=== PATIENT | female | born 1935 | race Caucasian/White ===

== ENCOUNTER 2023-07-05 13:04 | Emergency (ER) | payer MEDICARE, SELFPAY ==
[2023-07-05 13:09] VITALS: BP 164/83
--- NOTE | 2023-07-05 14:31 | ED.GENMED ---
History of Present Illness
General
Chief Complaint: Fall
Source: patient
Time Seen by Provider: 07/05/23 14:00
Travel History
Have you had any contact with someone who has COVID-19?: No
Do you have any symptoms of coronavirus? Fever > 100 degrees, chills, cough, shortness of breath, sore throat, loss of taste or smell, muscle aches, or headache?: No
History of Present Illness
History of Present Illness:
88-year-old female presents emergency room for evaluation of injuries that occurred after a fall yesterday. Patient was walk around her neighborhood to get some exercise. She got home later than expected because she was talking to lots of
neighbors and so it was dark. She began to feel little dizzy and ended up tripping and falling she is on to her forehead/face. No loss of consciousness. Patient awoke to significant bruising and decided she should get checked out. She does not
take any oral anticoagulation. She does take a baby aspirin a day.
Past History
Past History
ED Past Medical History: CAD, Hypothyroidism, Other (TIA ) and Other (Diverticulitis)
ED Past Surgical History: Cardiac and Gynecological
Social History
Tobacco: Non-smoker
Alcohol: Occasional
Drug: None
Personal:
Living: with family
Employment: Retired
Family History
Family History: Other
Phy Exam
Physical Exam
Physical Exam:
General: Awake, Alert, Oriented X3. No acute distress.
Vitals: unremarkable
Head: Abrasion noted just to the right of center on her forehead. Ecchymosis noted forehead, bilateral periorbital and about the nose.
Nose: No septal hematoma
Eyes: Pupils equal, EOMI
Throat: Airway intact, no exudates
Neck: Trachea midline
Lungs: Clear and equal b/l
Heart: Regular rate, no murmurs
Abd: Soft, Nontender, No pulsatile mass
Neuro: Cranial nerves intact, muscle strength equal bilaterally
Skin: Warm, dry, no rash
Extremities: pulses equal b/l, no edema
Course
Orders/Labs/Results
Orders:
Orders
07/05/23 13:14
CT Head W/o Iv Contrast Urgent
Comment:
Reason For Exam: fall
07/05/23 14:01
CT Facial Bones W/o Iv Contras Urgent
Comment:
Reason For Exam: fall, facial trauma
07/05/23 14:33
Acetaminophen [Tylenol] 650 mg PO NOW STA
Tetanus/Diphth/Acelpertussis [Adacel] 0.5 ml IM .ONCE ONE
Vital Signs
Initial and Last Documented VS:
Initial Vital Signs
Temp Pulse Resp BP Pulse Ox
98.7 F 63 18 164/83 96
07/05/23 13:09 07/05/23 13:09 07/05/23 13:09 07/05/23 13:09 07/05/23 13:09
Last Documented Vital Signs
Temp Pulse Resp BP Pulse Ox
98.7 F 62 16 144/91 96
07/05/23 13:09 07/05/23 14:44 07/05/23 14:44 07/05/23 14:44 07/05/23 13:09
MDM/Problems Addressed
Differential Diagnosis Includes:
Subdural, cranial hemorrhage, facial bone fracture, contusions
MDM/Problems Addressed:
CT shows no acute intracranial abnormality. The fracture of facial bones. Ecchymosis seems to be tracking with gravity more so than reflective of actual facial trauma. Patient stable for discharge home. Tetanus updated.
*Radiology
Radiology exam reviewed: radiology read reviewed
*Pulse Oximetry
Patient hypoxic: no
*Critical Care Note
Total Time (30-74mins, 75-104mins- exclusive of procedures): Not Applicable
ED Attending Note
-
Portions of this chart may have been created with voice recognition software.� Occasional wrong word or��sound alike� substitutions may have occurred due to the inherent limitations of voice recognition software.
Discharge Plan
Departure
Patient Disposition: Home (Routine Discharge)
Date of Disposition: 07/05/23
Time of Disposition: 14:47
Patient with high blood pressure during this ER visit?: Yes
Condition: Good
Discharge Problem:
Head injury, Contusion of face
Instructions: Head Injury in Adults (DC), Contusion (DC), BLOOD PRESSURE
Prescriptions:
No Action
levothyroxine [Synthroid] 25 MCG tablet
25 mcg PO DAILY
folic acid 1 MG tablet
1 mg PO DAILY
docosahexaenoic acid-epa 1 CAP capsule
1 cap PO DAILY
multivitamin with folic acid [Tab-A-Courtney] 1 TABLET tablet
1 tab PO DAILY
Vitamin C
1 tab PO DAILY
Vitamin D
1 tab PO DAILY
aspirin 81 MG tablet,delayed release (DR/EC)
81 mg PO DAILY
lorazepam [Ativan] 2 MG tablet
1 mg PO PRN (Reason: trouble sleeping)
ondansetron 4 MG tablet,disintegrating
4 mg PO TIDPRN PRN (Reason: nausea/vomiting) Qty: 5 0RF
Referrals:
Shay Cat MD [Family Provider] -
Interventions
Interventions:
*Risk Screen - Suicide Last Done: 07/05/23 13:09
*General Assessment Last Done: 07/05/23 13:09
*Neglect/Abuse Screening Last Done: 07/05/23 13:09
*ED COVID-19 Vaccine History Last Done: 07/05/23 13:50
*Nursing Disposition Last Done: 07/05/23 15:08
ED-Musculoskeletal Assessment Last Done: 07/05/23 13:50
ED- Neurological Assessment Last Done: 07/05/23 13:50
ED-Skin Assessment Last Done: 07/05/23 13:50
Discharge Date and Time
Discharge Date/Time: 07/05/23 15:08
[2023-07-05] MEDS: TYLENOL 650 MG PO (14:35)
[2023-07-05] MEDS: ADACEL 0.5 ML IM (14:36)
[2023-07-05 14:44] VITALS: BP 144/91
== END 2023-07-05 15:08 | disposition home or self-care (01) ==
LOC: EMR 13:04
PROVIDERS: EMERGENCY PHYSICIAN Emergency Medicine; FAMILY PHYSICIAN Internal Medicine Geriatric Medicine
DX: S00.81XA Abrasion of other part of head, initial encounter (principal); S00.83XA Contusion of other part of head, initial encounter; W01.0XXA Fall on same level from slipping, tripping and stumbling without subsequent striking against object, initial encounter; R42 Dizziness and giddiness; Z23 Encounter for immunization
CPT/HCPCS: 99284; 90471; 70450; 70486; 90715

== ENCOUNTER 2023-08-10 21:32 | Inpatient (IN) | payer MEDICARE, SELFPAY ==
[2023-08-10 19:13] VITALS: BP 119/50; BMI 25.1
[2023-08-10 19:23] VITALS: BP 119/50
[2023-08-10 19:39] LABS: % Basophils 0.3 % (0-2); % Immature Granulocytes 0.4 % (0-0.5); % Lymphocytes 2.8 % (20.5-51.1); % Monocytes 4.8 % (1.7-9.3); % Neutrophils 91.7 % (42.2-75.2); Absolute Basophils 0.1 10^3/uL (0-0.2); Absolute Immature Granulocytes 0.1 10^3/uL (0-0.05); Absolute Lymphocytes 0.5 10^3/uL (1.2-3.4); Absolute Monocytes 0.9 10^3/uL (0.1-0.6); Absolute Neutrophils 17.5 10^3/uL (1.4-6.5); Hematocrit 38.6 % (37.0-47.0); Hemoglobin 13.3 g/dL (12.0-16.0); Mean Corp Hgb Conc. 34.5 g/dL (33.0-37.0); Mean Corpuscular Volume 84.3 fL (81.0-99.0); Mean Platelet Volume 9.5 fL (7.4-10.4); Nucleated Red Blood Cells % 0 %; Platelet Count 279 10^3/uL (130-400); Red Blood Cell Count 4.58 10^6/uL (4.20-5.40); Red Cell Dist. Width 13.5 % (11.5-14.5); White Blood Cell Count 19.1 10^3/uL (4.8-10.8)
--- NOTE | 2023-08-10 19:49 | ED.GENMED ---
History of Present Illness
General
Chief Complaint: Abdominal Symptoms
Source: patient
Exam Limitations: none
Time Seen by Provider: 08/10/23 19:36
Travel History
Have you had any contact with someone who has COVID-19?: No
Do you have any symptoms of coronavirus? Fever > 100 degrees, chills, cough, shortness of breath, sore throat, loss of taste or smell, muscle aches, or headache?: No
History of Present Illness
History of Present Illness:
88-year-old female presents via EMS from home where she lives by herself. She has had nausea vomiting diarrhea starting 2 days ago. Vomiting stopped today but persists with diarrhea. She notes weakness. She notes diffuse abdominal pain. She
thinks she may have eaten some bad shrimp 2 days ago. No known sick contacts. No chest pain. No other complaints at this time
Past History
Past History
ED Past Medical History: CAD, Hypothyroidism, Other (TIA ) and Other (Diverticulitis)
ED Past Surgical History: Cardiac and Gynecological
Social History
Tobacco: Non-smoker
Alcohol: Occasional
Drug: None
Personal:
Living: with family
Employment: Retired
Family History
Family History: Other
Phy Exam
Physical Exam
Physical Exam:
General: Well-appearing female no acute respiratory distress
HEENT normocephalic mucosa dry
Heart: Regular rate and rhythm no murmurs
Lungs: Clear no wheeze
Abdomen: Soft but tender diffusely to light touch. No guarding or rebound normal bowel sounds extremities: No cyanosis
Course
Orders/Labs/Results
Orders:
Orders
08/10/23 19:27
Complete Blood Count/With Diff Urgent
Comprehensive Metabolic Panel Urgent
08/10/23 19:48
CT Abd/pelvis W Iv Cont Urgent
Comment:
Reason For Exam: abdominal pain, diarrhea
Norovirus by PCR Urgent
ALLAN Source: Feces/Stool
Specimen Description:
STOOL [C difficile Antigen & Toxins] Urgent
ALLAN Source: Feces/Stool
Specimen Description:
Stool Culture Urgent
ALLAN Source: Feces/Stool
Specimen Description:
Acetaminophen [Tylenol] 650 mg PO NOW STA
08/10/23 21:00
Lactic Acid Q4H
Comment: CANCEL 2nd LACTIC ACID IF 1st LACTIC ACID IS LESS THAN 2
Blood Culture Q30M
ALLAN Source: Blood/Venous
Specimen Description:
08/10/23 21:30
Blood Culture Q30M
ALLAN Source: Blood/Venous
Specimen Description:
08/11/23 01:00
Lactic Acid Q4H
Comment: CANCEL 2nd LACTIC ACID IF 1st LACTIC ACID IS LESS THAN 2
Abnormal Lab Results
08/10/23
19:27
WBC 19.1 H 10^3/uL
(4.8-10.8)
Abs Immat Gran (auto) 0.1 H 10^3/uL
(0-0.05)
Absolute Neuts (auto) 17.5 H 10^3/uL
(1.4-6.5)
Absolute Lymphs (auto) 0.5 L 10^3/uL
(1.2-3.4)
Absolute Monos (auto) 0.9 H 10^3/uL
(0.1-0.6)
Neutrophils % 91.7 H %
(42.2-75.2)
Lymphocytes % 2.8 L %
(20.5-51.1)
Sodium 133 L mmol/L
(135-145)
Glucose 154 H mg/dl
(70-99)
Total Bilirubin 2.2 H mg/dl
(0.2-1.3)
Total Protein 5.8 L g/dl
(6.3-8.2)
Albumin 3.3 L g/dl
(3.5-5.0)
08/10/23 19:27
08/10/23 19:27
Vital Signs
Initial and Last Documented VS:
Initial Vital Signs
Temp Pulse Resp BP Pulse Ox
101.0 F H 73 30 119/50 94
08/10/23 19:13 08/10/23 19:13 08/10/23 19:13 08/10/23 19:13 08/10/23 19:13
Last Documented Vital Signs
Temp Pulse Resp BP Pulse Ox
101.0 F H 78 28 118/63 95
08/10/23 19:13 08/10/23 20:15 08/10/23 20:15 08/10/23 20:00 08/10/23 19:45
MDM/Problems Addressed
Differential Diagnosis Includes:
Nausea vomiting and diarrhea x 2 days with fever today. Question possible viral illness, vs obstruction. Will check for electrolyte abnormality and stool cultures if she provides sample. Will hydrate give Tylenol for symptoms and given the
tenderness on exam CT of the abdomen pending.
*Critical Care Note
Total Time (30-74mins, 75-104mins- exclusive of procedures): Not Applicable
Update Note
Update Note:
White blood cell count 19,000. Patient is not vomiting here. CT demonstrates small bowel obstruction with transition point in the lower abdomen with focal small perforation. Blood cultures ordered patient received a liter of fluids here. Zosyn
ordered. Contacted medicine and surgery and will admit to hospital
ED Attending Note
-
Portions of this chart may have been created with voice recognition software.� Occasional wrong word or��sound alike� substitutions may have occurred due to the inherent limitations of voice recognition software.
Discharge Plan
Departure
Patient Disposition: Admit
Date of Disposition: 08/10/23
Time of Disposition: 20:56
Admit to: IMU
Presentation/result/management discussed w/ accepting MD/DO: Hospitalist
Discharge Problem:
SBO (small bowel obstruction)
Prescriptions:
No Action
levothyroxine [Synthroid] 25 MCG tablet
25 mcg PO DAILY
folic acid 1 MG tablet
1 mg PO DAILY
docosahexaenoic acid-epa 1 CAP capsule
1 cap PO DAILY
multivitamin with folic acid [Tab-A-Courtney] 1 TABLET tablet
1 tab PO DAILY
Vitamin C
1 tab PO DAILY
Vitamin D
1 tab PO DAILY
aspirin 81 MG tablet,delayed release (DR/EC)
81 mg PO DAILY
lorazepam [Ativan] 2 MG tablet
1 mg PO PRN (Reason: trouble sleeping)
ondansetron 4 MG tablet,disintegrating
4 mg PO TIDPRN PRN (Reason: nausea/vomiting) Qty: 5 0RF
Referrals:
Shay Cat MD [Family Provider] -
Interventions
Interventions:
*Risk Screen - Suicide Last Done: 08/10/23 19:13
*General Assessment Last Done: 08/10/23 19:13
*Neglect/Abuse Screening Last Done: 08/10/23 19:13
ED- Fall Risk Assessment Last Done: 08/10/23 19:28
*ED COVID-19 Vaccine History Last Done: 08/10/23 19:13
SY-Amilnm-Xfpnhdpqse Assessment Last Done: 08/10/23 19:28
[2023-08-10 19:51] LABS: ALT (SGPT) 23 U/L (0-35); AST (SGOT) 27 U/L (14-36); Albumin 3.3 g/dl (3.5-5.0); Alkaline Phosphatase 79 U/L (38-126); Blood Urea Nitrogen 17 mg/dl (7-17); Calcium 9.2 mg/dl (8.4-10.2); Carbon Dioxide 23 mmol/L (22-30); Chloride 102 mmol/L (98-107); Estimated Creatinine Clearance 58 ml/min; Glucose 154 mg/dl (70-99); Potassium 3.9 mmol/L (3.5-5.1); Sodium 133 mmol/L (135-145); Total Bilirubin 2.2 mg/dl (0.2-1.3); Total Protein 5.8 g/dl (6.3-8.2); eGFR > 60.00
[2023-08-10] MEDS: TYLENOL 650 MG PO (19:54)
[2023-08-10 20:00] VITALS: BP 118/63
[2023-08-10 21:00] VITALS: BP 116/51
[2023-08-10 21:17] LABS: Lactic Acid 2.9 mmol/L (0.7-2.0)
--- NOTE | 2023-08-10 21:22 | HPS.HSE ---
Addendum entered and electronically signed by Paddy Patel MD 08/10/23 21:30:
I have personally seen patient and agree with assessment and plan below.
In Brief: 88yo F with 3 days of diarhea and abdominal pain developed fever, CT showed SBO and focal perforation
STart Vanco/Merrem, urgent GenSx eval and IMU admission for sepsis (fever and leukocytosis 2/2 intraabdominal infection), possible peritonitis
Original Note:
Family Physician
-
Family Physician: Shay Cat
Chief Complaint
-
Abdominal Pain
History of Present Illness
Patient is an 88 y/o with PMH of CAD s/p multiple stents (last May 2019, hypothyroidism, and hypertension present to the ED complaining of abdominal pain. Patient has had nausea, vomiting, and diarrhea for the past 2 days. Today she developed
increasing abdominal pain, bloating, and fever. Abdominal CT today revealed small bowel obstruction with focal perforation. Hospitalist group was asked to evaluate the patient for admission to the hospital.
Medical History
Past Medical History
Past Medical History: Reports Other
Additional Past Medical History:
Coronary Artery Disease s/p Multiple stents (most recent 2019)
Essential Hypertension
Hyperlipidemia
Hypothyroidism
Past Surgical History: Reports Other
Additional Past Surgical History:
Hysterectomy
Partial Thyroidectomy
Bilateral Cataracts
Social History
Tobacco: Non-smoker
Alcohol: Occasional
Living: With Family
Family History
Family History: Not pertinent
Allergies / Home Medications
Allergies reflects when Allergies were last updated in [employer].
Home Medications with original date entered in [employer]
Allergy/Medication List:
Allergies
Allergy/AdvReac Type Severity Reaction Status Date / Time
No Known Allergies Allergy Verified 10/05/22 13:09
Home Medications
ascorbic acid (vitamin C) 500 mg tablet (Vitamin C) 500 mg PO DAILY 01/23/10
cholecalciferol (vitamin D3) 25 mcg (1,000 unit) tablet (Vitamin D3) 25 mcg PO DAILY 01/23/10
docosahexaenoic acid (dha)-epa 120 mg-180 mg capsule 1 cap PO DAILY 01/23/10
folic acid 1 mg tablet 1 mg PO DAILY 01/23/10
levothyroxine 25 mcg tablet (Synthroid) 25 mcg PO DAILY 01/23/10
multivitamin with folic acid 400 mcg tablet (Tab-A-Courtney) 1 tab PO DAILY 01/23/10
aspirin 81 mg tablet,delayed release 81 mg PO DAILY 02/28/13
amlodipine 2.5 mg tablet 2.5 mg PO DAILY 08/10/23
bimatoprost 0.01 % eye drops (Lumigan) 1 drp BOTH EYES HS 08/10/23
brinzolamide 1 %-brimonidine 0.2 % eye drops,suspension (Simbrinza) 1 drp RIGHT EYE DAILY 08/10/23
coenzyme Q10 100 mg capsule (Co Q-10) 100 mg PO DAILY 08/10/23
diphenhydramine HCl 25 mg capsule (ZzzQuil) 25 mg PO HS 08/10/23
estradiol 2 mg (7.5 mcg/24 hour) vaginal ring (Estring) 1 vag ring vaginal [id number] 08/10/23
red yeast rice 600 mg tablet 600 mg PO DAILY 08/10/23
Review of Systems
-
Constitutional: Reports Fever
Respiratory: Denies Cough or Trouble Breathing
Cardiac: Denies Chest Pain or Palpitations
Abdomen/GI: Reports See HPI
Physical Exam
Vital Signs
Vital Signs
Temp Pulse Resp BP Pulse Ox
101.0 F H 78 28 118/63 95
08/10/23 19:13 08/10/23 20:15 08/10/23 20:15 08/10/23 20:00 08/10/23 19:45
Physical Exam
General: Well Developed and Well Nourished
HEENT: NormoCephalic, Anicteric and Atraumatic
Respiratory: Clear and Non Labored Respirations
Cardiac: S1/S2 and Regular Rhythm
GI: Soft, Tender (Mild throughout with slightly rebound) and Distended
Rectal: Deferred by Provider
Musculoskeletal: No Clubbing, No Cyanosis and No Edema
Skin: Warm and Dry
Neuro: Awake, Alert, Oriented and Nonfocal/grossly intact
Laboratory Results
-
08/10/23 19:27
08/10/23 19:
Laboratory Results
Lactic Acid 2.9 mmol/L (0.7-2.0) H 08/10/23 20:59
Total Bilirubin 2.2 mg/dl (0.2-1.3) H 08/10/23 19:
AST 27 U/L (14-36) 08/10/23 19:
ALT 23 U/L (0-35) 08/10/23 19:27
Alkaline Phosphatase 79 U/L (38-126) 08/10/23 19:27
Abd/Pelvis CT scan
Small bowel obstruction with transition point in the low anterior mid abdomen related to short segment of small bowel enteritis and/or neoplasm, with focal small bowel perforation at this site.
Data Reviewed
-
CT Scan: Report Reviewed by me
Lab Data: Labs Reviewed by me
Impression/Plan
-
Sepsis secondary Small Bowel Obstruction with Small Bowel Perforation
-Consult Surgery - Possible OR this evening
-Continue NPO/IVFs
-Start empiric antibiotics with meropenem and vancomycin
Coronary Artery Disease s/p Multiple stents (most recent 2019)
-Resume aspirin when able to take oral meds
Essential Hypertension
-Hold amlodipine
-Monitor BP closely
Hyperlipidemia
-Patient take red yeast rice as outpatient
Hypothyroidism
-Resume oral levothyroxine when able to take oral meds
-Consider levothyroxine IV if unable to take PO for extended period of time
DVT proph: SCDs
Code Status: Full Code
[2023-08-10] MEDS: STERILE WATER FOR INJECTION 20 ML IV (21:38)
[2023-08-10] MEDS: MERREM 1000 MG IV (21:38)
--- NOTE | 2023-08-10 22:16 | CON.MD ---
Consultation - Medical
-
Full consult to be dictated.
History, vitals, labs, imaging reviewed. Patient seen and examined.
88-year-old female with 3 days of nausea, vomiting, abdominal pain, and diarrhea who came to the ER with a fever of 101 Fahrenheit and blood work showing a white count of 19,[address] scan of the abdomen pelvis reveals small bowel
obstruction with a transition in the lower abdomen with associated short segment enteritis versus neoplasm with focal perforation with a few flecks of free air. On exam she is fairly tender particular in the lower quadrants. Interestingly,
historically she has had diverticulitis in the past and has had questionable small bowel obstructions in the past. She also has had serial CTs showing a questionable soft tissue mass of the small bowel of unclear cause which has been followed
radiographically. I discussed the situation with the patient and her daughter at the bedside and recommended a trip to the operating room for exploratory laparotomy with possible partial bowel resection and possible stoma. I emphasized that it is
unclear at this point what the pathology is. I discussed the potential for postop ventilation and potential need for second look. Risk and benefits were discussed. Risk described included but are not limited to bleeding, infection, anastomotic
leak (if anastomosis created), bowel or solid organ injury hernia formation, as well as anesthetic/cardiopulmonary risks. The patient understands and agrees to proceed. All questions answered.
Thanks.
[2023-08-11] VITALS (23 sets, daily range): BP systolic 111–172; BP diastolic 51–106; PULSE 84; O2SAT 96; BMI 23.7
--- NOTE | 2023-08-11 00:31 | W.IMMPOSTOP ---
Addendum entered and electronically signed by Sergio Marx MD 08/11/23 00:57:
Patient's daughter updated and waiting area.
Original Note:
Surgical Immed Post Op Note
-
Primary Surgeon: Nga Marx MD
Assisting Surgeon: none
Pre-op Diagnosis: 1) small bowel obstruction 2) small bowel perforation 3) enteritis vs small bowel mass
Post-op Diagnosis: same
Procedure Performed: 1) exploratory laparotomy 2) partial small bowel resection 3) excision small bowel mass
Anesthesia Type: general plus local
Specimen / Cultures: 1) abdominal fluid cultures 2) 30 cm of ileum to include perforation 3) jejunal mass (?diverticulum)
Estimated Blood Loss: 50 cc
Complications: no immediate
Operative Findings: 1) ileal perforation with surrounding enteritis 2) associated mucopurulent fluid 3) proximal jejunal mass vs diverticulum 4) jejunal diverticulosis 5) no obvious bowel obstruction
NGT in stomach (confirmed in OR).
Gunn in bladder.
Will send to IMU.
[2023-08-11 01:19] LABS: Blood Urea Nitrogen 17 mg/dl (7-17); Calcium 7.9 mg/dl (8.4-10.2); Carbon Dioxide 22 mmol/L (22-30); Chloride 104 mmol/L (98-107); Estimated Creatinine Clearance 58 ml/min; Glucose 142 mg/dl (70-99); Magnesium 1.7 mg/dl (1.6-2.3); Potassium 4.1 mmol/L (3.5-5.1); Sodium 135 mmol/L (135-145); eGFR > 60.00
[2023-08-11] MEDS: TORADOL 10 MG IV ×4 (01:19→18:30)
[2023-08-11 01:24] LABS: Lactic Acid 2.1 mmol/L (0.7-2.0)
[2023-08-11] MEDS: NORMOSOL-R 1000 IV ×4 (01:25→21:19)
[2023-08-11 01:28] LABS: Hematocrit 38.8 % (37.0-47.0); Hemoglobin 13.1 g/dL (12.0-16.0); Mean Corp Hgb Conc. 33.8 g/dL (33.0-37.0); Mean Corpuscular Hgb 29.2 pg (27.0-31.0); Mean Corpuscular Volume 86.6 fL (81.0-99.0); Mean Platelet Volume 10.2 fL (7.4-10.4); Nucleated Red Blood Cells % 0 %; Platelet Count 246 10^3/uL (130-400); Red Blood Cell Count 4.48 10^6/uL (4.20-5.40); Red Cell Dist. Width 13.7 % (11.5-14.5); White Blood Cell Count 16.5 10^3/uL (4.8-10.8)
[2023-08-11 02:13] LABS: Absolute Neutrophils -Man Diff 15.3 10^3/uL (1.4-6.5); Band Neutrophils 28 % (0-3); Lymphocytes 4 % (20-51); Metamyelocytes 1 % (-); Monocytes 2 % (2-9); Segmented Neutrophils 65 % (42-75)
[2023-08-11 02:15] LABS: Normal RBC Morphology Yes; Platelets Checked Yes; Total Cells Counted 100
--- NOTE | 2023-08-11 02:15 | PTCARENOTE ---
Assumed care of patient from PACU. Report given over the phone, patient picked up by myself and PCT, monitored and brought back to IMU. Daughter, Katherine Medley notified patient was placed in [id number]. Unable to do a full admission, pt still drowsy and
slightly confused to location and situation. Pt assessed and vital signs obtained. Pt has midline incision with scant drainage that was marked by the DIRECTOR OF HEMOPHILIA. Pt witha bdominal pain, given morphine per order-see JUL. Gunn in place and right NGT in
place to LIS. Call lira within reach.
[2023-08-11] MEDS: VANCOCIN 300 ML IV (02:43)
[2023-08-11] MEDS: VANCOCIN 300 MG IV (02:43)
[2023-08-11] MEDS: NORMOSOL-R IV ×2 (02:46→12:08)
[2023-08-11] MEDS: MORPHINE SULFATE 2 MG IV (02:48)
[2023-08-11] MEDS: MERREM 500 MG IV ×2 (04:09→09:04)
[2023-08-11] MEDS: STERILE WATER FOR INJECTION 10 ML IV ×2 (04:09→09:04)
[2023-08-11 04:43] LABS: Blood Urea Nitrogen 16 mg/dl (7-17); Calcium 7.8 mg/dl (8.4-10.2); Carbon Dioxide 24 mmol/L (22-30); Chloride 102 mmol/L (98-107); Estimated Creatinine Clearance 50 ml/min; Glucose 146 mg/dl (70-99); Magnesium 1.8 mg/dl (1.6-2.3); Potassium 3.9 mmol/L (3.5-5.1); Sodium 135 mmol/L (135-145); eGFR > 60.00
[2023-08-11 04:49] LABS: Hematocrit 39.5 % (37.0-47.0); Hemoglobin 12.7 g/dL (12.0-16.0); Mean Corp Hgb Conc. 32.2 g/dL (33.0-37.0); Mean Corpuscular Hgb 28.5 pg (27.0-31.0); Mean Corpuscular Volume 88.8 fL (81.0-99.0); Mean Platelet Volume 10.6 fL (7.4-10.4); Nucleated Red Blood Cells % 0 %; Platelet Count 259 10^3/uL (130-400); Red Blood Cell Count 4.45 10^6/uL (4.20-5.40); Red Cell Dist. Width 13.8 % (11.5-14.5); White Blood Cell Count 16.4 10^3/uL (4.8-10.8)
[2023-08-11 05:21] LABS: Absolute Neutrophils -Man Diff 15.2 10^3/uL (1.4-6.5); Band Neutrophils 34 % (0-3); Segmented Neutrophils 59 % (42-75)
[2023-08-11 05:22] LABS: Lymphocytes 2 % (20-51); Metamyelocytes 1 % (-); Monocytes 4 % (2-9); Platelets Checked Yes
[2023-08-11 05:23] LABS: Normal RBC Morphology Yes; Total Cells Counted 100; Toxic Granulation 1+
[2023-08-11] MEDS: NSS (PRESERVATIVE FREE) 10 ML IV (09:04)
[2023-08-11] MEDS: PROTONIX IV 40 MG IV (09:05)
--- NOTE | 2023-08-11 10:58 | PHA.VAN.IN ---
Assessment
- Assessment
Maximum Temperature: 101 08/10/23 at 19:13
Minimum Temperature: 97.8 08/11/23 at 03:38
Concomitant Antimicrobials: Meropenem
AUC Dosing Plan
- Dosing Variables
Dosing Weight (kg): 64.7
Dosing CrCl (ml/min): 50
Vd coefficient (L/kg): 0.7
- Empiric Dosing
Initial / Loading Dose: Vancomycin 1500mg IV X 1 dose given 08/11/23 at 02:43
Maintenance Regimen: Vancomycin 1000mg IV Q24hr starting tomorrow 08/12/23 at 06:00
Estimated AUC (mcg*h/mL): 492
Estimated Peak (mcg*h/mL): 33
Estimated Trough (mcg/ml): 12
Estimated Half Life (H): 15
- Monitoring
No levels ordered at this time: Will order levels according to vancomycin dosing protocol
Pharmacokinetics Vancomycin I
- -
Patient Age: 88
Patient Sex: Female
Vancomycin Day #: 1
Indication: Gi / Intra-Abdominal
Requesting Provider: Mary SNYDER
Pertinent Antimicrobial Allergies:
No antibiotic allergies
Height / Weight:
Height 5 ft 5 in
Actual Weight 64.7 kg
IBW in k
Adjusted BW in k.1
Pertinent Past Medical History: CAD w/multiple stents
- Vital Signs / Lab Results
Temp Pulse Resp BP Pulse Ox
98.0 F 79 21 139/60 93
08/11/23 07:41 08/11/23 05:30 08/11/23 05:30 08/11/23 05:00 08/11/23 05:30
Lab Results - Hematology
08/10/23 08/11/23 08/11/23
19:27 00:58 04:03
WBC 19.1 H 16.5 H 16.4 H
Band Neutrophils 28 H 34 H D
Lab Results - Chemistry
08/10/23 08/11/23 08/11/23
19:27 00:58 04:03
BUN 17 17 16
Creatinine 0.6 0.6 0.7
Estimated Creat Clear 58 58 50
Albumin 3.3 L
08/10/23 08/11/23
20:59 00:58
Lactic Acid 2.9 H 2.1 H
--- NOTE | 2023-08-11 11:46 | W.PN.CRS1 ---
Today's Communication / Plan
-
Continue NGT/IVF/NPO
Assessment/Plan
-
88 yo female presenting presenting with ileal perforation with surrounding enteritis now POD 0/1 ex lap with SBR and excision of proximal jejunal mass.
Febrile preop, no further fevers post op
VSS
Labs stable post op
Await bowel recovery
--Continue NPO with NGT to LIWS and await bowel recovery
--IVF while NPO
--Continue duggan
--OOB/PT consulted
--Scheduled and prn analgesics
--Resume home meds as able
--Narrow ABX to Zosyn q6h for GI coverage in the immediate post operative period (d/c merem/vanc)
--Trend labs
--Lovenox 40mg sq vte ppx, SCD's while in bed
Subjective Data
Procedure
1) exploratory laparotomy 2) partial small bowel resection 3) excision small bowel mass
Subjective Data
Date of Service: August 11, 2023
Patient seen and examined at bedside with Dr. Marx. In good spirits. Denies significant pain. Denies n/v. Tolerating NGT. Eager to get OOB.
Objective Data
-
Vital Signs
Temp Pulse Resp BP Pulse Ox
98.3 F 79 21 139/60 93
08/11/23 11:25 08/11/23 05:30 08/11/23 05:30 08/11/23 05:00 08/11/23 05:30
Intake & Output
08/10/23 08/11/23 08/12/23
06:59 06:59 06:59
Intake Total 100 / 100
Output Total 760 / 760
Balance -660 / -660
Intake:
IV fluids (Total) 100 / 100
Normosol 100 / 100
Output:
Gastrointestinal tube output (
Total)
[place] Sump
Urine, Duggan 750 / 750
Lab Results
08/11/23 04:03
08/11/23 04:03
Physical Exam
-
General: No Acute Distress
Abdomen: Soft, Non Distended, Tender (near incision) and Other (NGT with low volume bilious outputs, D[place]gan with light [place] urine)
Skin: Warm
Wound: Dressing Dry (Aquacel dressing in place/intact)
--- NOTE | 2023-08-11 13:55 | W.PN.HOSP.TC ---
Today's Communication/Plan
-
monitor Vitals
See plan
Change antibiotics to Zosyn
Follow fever curve, monitor blood culture
N.p.o., monitor NG tube
Continue fluids
Follow leukocytosis
Assessment / Plan
Assessment / Plan
General: Well Developed and Well Nourished
HEENT: NormoCephalic, Anicteric and Atraumatic
Respiratory: Clear and Non Labored Respirations
Cardiac: S1/S2 and Regular Rhythm
GI: Soft, abdominal surgical wound
Musculoskeletal: No Edema
Neuro: Awake, Alert, Oriented and Nonfocal/grossly intact
Severe Sepsis secondary Small Bowel Obstruction with Small Bowel Perforation
Surgery following, status post ex lap. Ileal perforation with surrounding enteritis
Continue with NG tube, n.p.o., fluids
Pain control
Change antibiotics to Zosyn
-Consult Surgery - Possible OR this evening
Lactic acidosis, trend
bcx pending; follow fever curve
bandemia noted
Coronary Artery Disease s/p Multiple stents (most recent 2019)
-Resume aspirin when able to take oral meds
Essential Hypertension
-Hold amlodipine
-Monitor BP closely
Hyperlipidemia
-Patient take red yeast rice as outpatient
Hypothyroidism
-Resume oral levothyroxine when able to take oral meds
-Consider levothyroxine IV if unable to take PO for extended period of time
DVT proph: SCDs; lovenox
Code Status: Full Code
I spent a total of 54 minutes with the patient or on the floor. More than 50% of this time involved counseling and coordination of care.
Anticipated Discharge: > 48 hours
Subjective/Interval History
-
Date of Service: August 11, 2023
does have some pain
Objective Data
-
Labs:
Laboratory Results
08/11/23
04:03
WBC 16.4 H
Hgb 12.7
Hct 39.5
Plt Count 259
Sodium 135
Potassium 3.9
Chloride 102
Carbon Dioxide 24
BUN 16
Creatinine 0.7
Glucose 146 H
Calcium 7.8 L
Vital Signs:
Vital Signs
Temp Pulse Resp BP Pulse Ox
98.3 F 79 21 139/60 93
08/11/23 11:25 08/11/23 05:30 08/11/23 05:30 08/11/23 05:00 08/11/23 05:30
I&O
08/10/23 08/11/23 08/12/23
06:59 06:59 06:59
Intake Total 100 / 100
Output Total 760 / 760
Balance -660 / -660
[2023-08-11] MEDS: SIMBRINZA 1%-0.2% OPHTH SUSP 1 DROP RIGHT EYE (14:09)
[2023-08-11 14:45] LABS: Lactic Acid 1.6 mmol/L (0.7-2.0)
--- NOTE | 2023-08-11 16:17 | CM ---
Patient with Dx Severe Sepsis secondary Small Bowel Obstruction with Small Bowel Perforation. NPO/NGT/IVF.
Met with patient who resides with her daughter Katherine in a 2 story house.
The patient has been independent in ADLs and ambulation without using any assistive devices.
Her daughters works from home and is available to assist her.
DME - [facility]
No prior VN or SNF.
PCP - Shay Cat
Pharmacy - [facility]
The patient would like the VN to check her at home.
Plan speak with daughter for d/c planning.
Plan probable home.
--- NOTE | 2023-08-11 17:00 | PTCARENOTE ---
Patient AAOx2-3, very forgetful at times. Bed alarm on for safety. VSS, weaned to RA. Currently up in chair after working with PT. Midline abd incision dressing CDI. NGT to LIS. Patient with no complaints, requesting that GI doctors update her
family (Efe-son at [phone]), Efe and WICHO visited earlier. Gunn catheter in place, draining yellow urine. Patient questioning if 'vaginal string med' was removed during surgery, per patient this stays in for 3 months, states it has only been
about 2 months, will follow up. Continuing to closely monitor patient.
[2023-08-11] MEDS: ZOSYN 50 IV ×2 (17:31→21:19)
[2023-08-11] MEDS: LOVENOX 40 MG SC (17:32)
[2023-08-11] MEDS: LUMIGAN 0.01% 1 DROP BOTH EYES (21:20)
[2023-08-12] VITALS (24 sets, daily range): BP systolic 148–179; BP diastolic 58–112
[2023-08-12] MEDS: TORADOL 10 MG IV ×4 (00:44→18:28)
[2023-08-12] MEDS: ZOSYN 50 IV ×4 (04:10→22:37)
[2023-08-12] MEDS: SYNTHROID PO (04:30)
[2023-08-12 04:36] LABS: Hematocrit 35.2 % (37.0-47.0); Hemoglobin 11.8 g/dL (12.0-16.0); Mean Corp Hgb Conc. 33.5 g/dL (33.0-37.0); Mean Corpuscular Volume 86.5 fL (81.0-99.0); Mean Platelet Volume 10.1 fL (7.4-10.4); Platelet Count 244 10^3/uL (130-400); Red Blood Cell Count 4.07 10^6/uL (4.20-5.40); White Blood Cell Count 16.6 10^3/uL (4.8-10.8)
[2023-08-12 05:06] LABS: Blood Urea Nitrogen 17 mg/dl (7-17); Calcium 8.4 mg/dl (8.4-10.2); Carbon Dioxide 26 mmol/L (22-30); Chloride 106 mmol/L (98-107); Estimated Creatinine Clearance 50 ml/min; Glucose 101 mg/dl (70-99); Magnesium 2.3 mg/dl (1.6-2.3); Phosphorus 3.6 mg/dl (2.5-4.5); Potassium 3.7 mmol/L (3.5-5.1); Sodium 135 mmol/L (135-145); eGFR > 60.00
[2023-08-12] MEDS: NSS (PRESERVATIVE FREE) 10 ML IV (10:05)
[2023-08-12] MEDS: PROTONIX IV 40 MG IV (10:06)
[2023-08-12] MEDS: NORMOSOL-R 1000 IV ×2 (10:13→22:36)
[2023-08-12] MEDS: NORVASC PO (10:28)
[2023-08-12] MEDS: APRESOLINE 5 MG IV (10:30)
[2023-08-12] MEDS: SIMBRINZA 1%-0.2% OPHTH SUSP 1 DROP RIGHT EYE (10:31)
--- NOTE | 2023-08-12 12:51 | W.PN.CRS1 ---
Today's Communication / Plan
-
NGT/NPO/IVF
Assessment/Plan
-
88 yo female presenting presenting with ileal perforation with surrounding enteritis now POD 2 ex lap with SBR and excision of proximal jejunal mass.
AFVSS
Labs stable post op, WBC remains elevated but not increasing
XR reviewed, NGT pulled back slightly. Will follow outputs.
Await bowel recovery
ABD cx with gram neg bacilli preliminarily
--Continue NPO with NGT to LIWS and await bowel recovery
--IVF while NPO
--Continue duggan
--OOB/PT consulted
--Scheduled and prn analgesics
--Continue IV abx
--Trend labs
--Lovenox 40mg sq vte ppx, SCD's while in bed
Subjective Data
Procedure
1) exploratory laparotomy 2) partial small bowel resection 3) excision small bowel mass
Subjective Data
Date of Service: August 12, 2023
Patient seen and examined at bedside with Dr. Marx. Denies n/v. OOB to chair. Minimal post op pain. Duggan out, voiding
Objective Data
-
Vital Signs
Temp Pulse Resp BP Pulse Ox
97.9 F 85 18 174/75 93
08/12/23 07:54 08/12/23 06:00 08/12/23 06:00 08/12/23 10:30 08/12/23 06:00
Intake & Output
08/11/23 08/12/23 08/13/23
06:59 06:59 06:59
Intake Total 100 / 100 1300 / 1300
Output Total 760 / 760 1100 / 1100
Balance -660 / -660 200 / 200
Intake:
IV fluids (Total) 100 / 100 1200 / 1200
Normosol 100 / 100
IV piggybacks 100 / 100
Amount instilled into GI Tube ( 0 / 0
Total)
[place] Sump 0 / 0
Output:
Gastrointestinal tube output (
Total)
[place] Sump 50
Urine, Duggan 750 / 750 1050 / 1050
Other:
How many times incontinent 1
MODERATE amount urine
Lab Results
08/12/23 04:15
08/12/23 04:15
Physical Exam
-
General: No Acute Distress
Abdomen: Soft, Non Distended, Tender (near incision) and Other (NGT with low volume bilious/brown outputs)
Skin: Warm
Wound: Dressing Dry (Aquacel dressing in place/intact)
--- NOTE | 2023-08-12 12:58 | W.PN.HOSP.TC ---
Today's Communication/Plan
-
Monitor vital signs and see plan
Blood pressure high today, added hydralazine as needed
Continue with n.p.o., NG tube
Await bowel recovery
Follow abdominal culture, growing gram-negative bacilli
cw abx
Follow leukocytosis
Assessment / Plan
Assessment / Plan
General: Well Developed and Well Nourished
HEENT: NormoCephalic, Anicteric and Atraumatic
Respiratory: Clear and Non Labored Respirations
Cardiac: S1/S2 and Regular Rhythm
GI: Soft, abdominal surgical wound
Musculoskeletal: No Edema
Neuro: Awake, Alert, Oriented and Nonfocal/grossly intact
Severe Sepsis secondary secondary to ileal perforation with surrounding entry
Surgery following, status post ex lap. Ileal perforation with surrounding enteritis
Continue with NG tube, n.p.o., fluids
Pain control
Change antibiotics to Zosyn
Lactic acidosis, resolved
bcx NGTD; follow fever curve
wound cx with gr- bacilli
Abdominal x-ray pending
Coronary Artery Disease s/p Multiple stents (most recent 2019)
-Resume aspirin when able to take oral meds
Essential Hypertension
-Hold amlodipine since NPO
-hydralazine PRN
Hyperlipidemia
-Patient take red yeast rice as outpatient
Hypothyroidism
-Resume oral levothyroxine when able to take oral meds
-Consider levothyroxine IV if unable to take PO for extended period of time
DVT proph: SCDs; lovenox
Code Status: Full Code
I spent a total of 52 minutes with the patient or on the floor. More than 50% of this time involved counseling and coordination of care.
Anticipated Discharge: > 48 hours
Subjective/Interval History
-
Date of Service: August 12, 2023
denies chest pain
Objective Data
-
Labs:
Laboratory Results
08/12/23
04:15
WBC 16.6 H
Hgb 11.8 L
Hct 35.2 L
Plt Count 244
Sodium 135
Potassium 3.7
Chloride 106
Carbon Dioxide 26
BUN 17
Creatinine 0.7
Glucose 101 H
Calcium 8.4
Vital Signs:
Vital Signs
Temp Pulse Resp BP Pulse Ox
97.9 F 85 18 174/75 93
08/12/23 07:54 08/12/23 06:00 08/12/23 06:00 08/12/23 10:30 08/12/23 06:00
I&O
08/11/23 08/12/23 08/13/23
06:59 06:59 06:59
Intake Total 100 / 100 1300 / 1300
Output Total 760 / 760 1100 / 1100
Balance -660 / -660 200 / 200
[2023-08-12] MEDS: OFIRMEV 100 IV ×2 (13:26→18:28)
--- NOTE | 2023-08-12 16:46 | PTCARENOTE ---
Rec'd pt this AM. OOB to chair. minimal pain. small amount of drainage from NGT. flushes easily. no BM. voiding well. Resting comfortably.
[2023-08-12] MEDS: LOVENOX 40 MG SC (16:52)
[2023-08-12] MEDS: LUMIGAN 0.01% 1 DROP BOTH EYES (22:37)
[2023-08-13] VITALS (13 sets, daily range): BP systolic 145–173; BP diastolic 70–90; BMI 24.8
[2023-08-13] MEDS: OFIRMEV 100 IV ×2 (01:34→06:00)
[2023-08-13] MEDS: TORADOL 10 MG IV ×4 (01:35→17:56)
[2023-08-13] MEDS: ZOSYN 50 IV ×4 (04:32→21:13)
[2023-08-13] MEDS: SYNTHROID PO (05:37)
[2023-08-13 05:40] LABS: % Basophils 0.2 % (0-2); % Eosinophils 0.5 % (0-6); % Immature Granulocytes 1.1 % (0-0.5); % Lymphocytes 3.4 % (20.5-51.1); % Monocytes 3.1 % (1.7-9.3); % Neutrophils 91.7 % (42.2-75.2); Absolute Eosinophils 0.1 10^3/uL (0-0.7); Absolute Immature Granulocytes 0.2 10^3/uL (0-0.05); Absolute Lymphocytes 0.6 10^3/uL (1.2-3.4); Absolute Monocytes 0.6 10^3/uL (0.1-0.6); Absolute Neutrophils 16.8 10^3/uL (1.4-6.5); Hematocrit 35.3 % (37.0-47.0); Hemoglobin 11.7 g/dL (12.0-16.0); Mean Corp Hgb Conc. 33.1 g/dL (33.0-37.0); Mean Corpuscular Volume 87.4 fL (81.0-99.0); Nucleated Red Blood Cells % 0 %; Platelet Count 249 10^3/uL (130-400); Red Blood Cell Count 4.04 10^6/uL (4.20-5.40); Red Cell Dist. Width 13.8 % (11.5-14.5); White Blood Cell Count 18.3 10^3/uL (4.8-10.8)
[2023-08-13 05:50] LABS: Blood Urea Nitrogen 11 mg/dl (7-17); Calcium 8.4 mg/dl (8.4-10.2); Carbon Dioxide 27 mmol/L (22-30); Chloride 102 mmol/L (98-107); Estimated Creatinine Clearance 58 ml/min; Glucose 86 mg/dl (70-99); Potassium 3.5 mmol/L (3.5-5.1); Sodium 133 mmol/L (135-145); eGFR > 60.00
--- NOTE | 2023-08-13 08:27 | W.PN.HOSP.TC ---
Today's Communication/Plan
-
see bold
Assessment / Plan
Assessment / Plan
Gen: NAD, AAOx3.
Eyes: EOMI, PERRLA, no scleral icterus.
Neck: supple.
CV: RRR, +S1/S2, no m/r/g.
Resp: CTAB, no rales, wheezes, or rhonchi.
Abd: +BS, soft, NT, ND
Skin: No rashes.
Neuro: CN 2-12 intact, non-focal.
Psych: Normal mood and affect.
Abd Xray 08/12/23: NG tube over stomach.
Severe Sepsis secondary secondary to ileal perforation with surrounding enteritis:
-s/p�exploratory laparotomy with partial small bowel resection and excision small bowel mass on 08/11/23
Continue with NG tube (currently at low intermittent suction), n.p.o., fluids
Pain control
cont Zosyn
Lactic acidosis, resolved
BCx NGTD, WCx with GNR
Other problems:
Coronary Artery Disease s/p Multiple stents (most recent 2019): Resume ASA when able to take oral meds
Essential Hypertension: IV Hydralazine PRN
Hyperlipidemia
Hypothyroidism: If unable to take PO would give IV Levoxyl on 08/15/23
FULL/Lovenox
Total time spent on today's encounter was 50 minutes which included time spent in counseling the patient/family regarding diagnosis and treatment plan as listed above, goals of care, and symptom management. Case was discussed with nursing staff,
specialists, and care coordinators/case management. All labs and imaging personally reviewed by me. Remainder the time spent in detailed review of previous records, lab data, imaging, and other medical provider documentation.
Anticipated Discharge: > 48 hours
Subjective/Interval History
-
Date of Service: August 13, 2023
Denies abd pain.
Objective Data
-
Labs:
Laboratory Results
08/13/23
04:57
WBC 18.3 H
Hgb 11.7 L
Hct 35.3 L
Plt Count 249
Sodium 133 L
Potassium 3.5
Chloride 102
Carbon Dioxide 27
BUN 11
Creatinine 0.6
Glucose 86
Calcium 8.4
Vital Signs:
Vital Signs
Temp Pulse Resp BP Pulse Ox
97.3 F 85 28 172/89 95
08/13/23 07:21 08/13/23 04:00 08/13/23 04:00 08/13/23 04:00 08/13/23 04:00
I&O
08/12/23 08/13/23 08/14/23
06:59 06:59 06:59
Intake Total 1300 / 1300 3130 / 3130
Output Total 1100 / 1100 2450 / 2450
Balance 200 / 200 680 / 680
[2023-08-13] MEDS: PROTONIX IV 40 MG IV (08:56)
[2023-08-13] MEDS: NSS (PRESERVATIVE FREE) 10 ML IV (08:56)
[2023-08-13] MEDS: SIMBRINZA 1%-0.2% OPHTH SUSP 1 DROP RIGHT EYE (09:09)
[2023-08-13] MEDS: NORVASC PO (09:09)
[2023-08-13] MEDS: NORMOSOL-R 1000 IV ×2 (09:30→21:13)
[2023-08-13] MEDS: APRESOLINE 10 MG IV (13:31)
--- NOTE | 2023-08-13 13:51 | W.PN.CRS1 ---
Today's Communication / Plan
-
Monitor WBC, continue antibiotics
Continue NG tube
Await bowel function
Assessment/Plan
-
88 yo female presenting presenting with ileal perforation with surrounding enteritis now POD #3 ex lap with SBR and excision of proximal jejunal mass.
1. WBC up to 18.3. Continue antibiotics and monitor.
2. Continue n.p.o. with NG tube to low intermittent suction. Await bowel function.
3. Out of bed as tolerated.
4. Okay to have ice chips.
5. Lovenox for DVT prophylaxis, SCDs and teds.
6. Toradol scheduled, morphine as needed.
7. OR pathology pending.
Subjective Data
Procedure
1) exploratory laparotomy 2) partial small bowel resection 3) excision small bowel mass
Subjective Data
Date of Service: August 13, 2023
Patient states her pain is controlled. She has flatus but no bowel movements. She is hungry.
Objective Data
-
Vital Signs
Temp Pulse Resp BP Pulse Ox
96.2 F L 78 24 166/70 98
08/13/23 11:50 08/13/23 10:00 08/13/23 08:00 08/13/23 13:31 08/13/23 10:00
Intake & Output
08/12/23 08/13/23 08/14/23
06:59 06:59 06:59
Intake Total 1300 / 1300 3130 / 3130
Output Total 1100 / 1100 2450 / 2450
Balance 200 / 200 680 / 680
Intake:
IV fluids (Total) 1200 / 1200 2300 / 2300
IV piggybacks 100 / 100 750 / 750
Amount instilled into GI Tube ( 0 / 0 80 / 80
Total)
[place] Sump 0 / 0 80 / 80
Output:
Gastrointestinal tube output ( 50 / 50 350 / 350
Total)
[place] Sump 50 / 50 350 / 350
Urine, Gunn 1050 / 1050
Urine, Voided 2099 / 2099
Other:
How many times incontinent 1
MODERATE amount urine
Lab Results
08/13/23 04:57
08/13/23 04:57
Physical Exam
-
General: No Acute Distress and AOx3
Abdomen: Soft, Non Distended and Non Tender
Skin: Warm and Dry
--- NOTE | 2023-08-13 14:59 | CM ---
CM following re: discharge planning.
Reviewed pt's chart, met with pt and pt's daughter at bedside.
Pt's daughter stated that she and her brother are looking for to get their mother (pt) to a SNF for a short term rehab. PT/OT evaluations from before yesterday indicate home PT. Both pt and her daughter expressed their disappointed feelings.
CM spoke top PT and OT and they will re-evaluate the pat to determine a level of care at discharge.
CM will discuss SNF options after PT/OT reevaluations.
D/C plan: most likely preferred SNF.
CM will follow with discharge plan updates as hospitalization progresses
--- NOTE | 2023-08-13 16:50 | PTCARENOTE ---
Rec'd this AM. pt tolerating ice chips, BM x2 in BSC. vital signs stable. RN updated GI team. Pt now M/S
[2023-08-13] MEDS: LOVENOX 40 MG SC (17:56)
[2023-08-13] MEDS: CHLORASEPTIC/SORE THROAT SPRAY 1 SPRAY PO (19:46)
[2023-08-13] MEDS: LUMIGAN 0.01% 1 DROP BOTH EYES (21:13)
--- NOTE | 2023-08-13 22:49 | PTCARENOTE ---
Received pt at start of shift. aaox2-3, forgetful. Denies any pain at this time. NGT in place, draining. Purewick in place. Aquacell intact on abdomen, moderate amount of drainage. IVF running. NPO. BA on. Will continue to monitor.
[2023-08-14 00:04] VITALS: BP 165/81
[2023-08-14] MEDS: TORADOL 10 MG IV ×4 (00:08→19:58)
[2023-08-14 04:26] VITALS: BMI 25.5
[2023-08-14] MEDS: SYNTHROID PO (04:56)
[2023-08-14] MEDS: ZOSYN 50 IV ×4 (04:56→22:16)
[2023-08-14 05:33] LABS: % Basophils 0.2 % (0-2); % Eosinophils 0.5 % (0-6); % Immature Granulocytes 0.8 % (0-0.5); % Lymphocytes 3.4 % (20.5-51.1); % Monocytes 4.5 % (1.7-9.3); % Neutrophils 90.6 % (42.2-75.2); Absolute Eosinophils 0.1 10^3/uL (0-0.7); Absolute Immature Granulocytes 0.2 10^3/uL (0-0.05); Absolute Lymphocytes 0.6 10^3/uL (1.2-3.4); Absolute Monocytes 0.8 10^3/uL (0.1-0.6); Absolute Neutrophils 16.6 10^3/uL (1.4-6.5); Hematocrit 38.7 % (37.0-47.0); Hemoglobin 12.8 g/dL (12.0-16.0); Mean Corp Hgb Conc. 33.1 g/dL (33.0-37.0); Mean Corpuscular Hgb 29.1 pg (27.0-31.0); Mean Platelet Volume 9.4 fL (7.4-10.4); Nucleated Red Blood Cells % 0 %; Platelet Count 294 10^3/uL (130-400); Red Cell Dist. Width 13.5 % (11.5-14.5); White Blood Cell Count 18.3 10^3/uL (4.8-10.8)
[2023-08-14 06:04] LABS: Blood Urea Nitrogen 8 mg/dl (7-17); Calcium 8.7 mg/dl (8.4-10.2); Carbon Dioxide 24 mmol/L (22-30); Chloride 100 mmol/L (98-107); Estimated Creatinine Clearance 58 ml/min; Glucose 77 mg/dl (70-99); Potassium 3.1 mmol/L (3.5-5.1); Sodium 132 mmol/L (135-145); eGFR > 60.00
[2023-08-14] MEDS: KCL 270 MEQ IV ×2 (06:37→11:53)
[2023-08-14] MEDS: NORMOSOL-R IV ×2 (07:05→17:14)
[2023-08-14] MEDS: NORVASC PO (07:29)
[2023-08-14 08:00] VITALS: BP 150/90
[2023-08-14] MEDS: PROTONIX IV 40 MG IV (08:29)
[2023-08-14] MEDS: SIMBRINZA 1%-0.2% OPHTH SUSP 1 DROP RIGHT EYE (08:29)
[2023-08-14] MEDS: NSS (PRESERVATIVE FREE) 10 ML IV (08:29)
--- NOTE | 2023-08-14 09:18 | W.PN.CRS1 ---
Addendum entered and electronically signed by Sergio Marx MD 08/14/23 17:07:
I saw and examined the patient.
The PA's note was reviewed and I agree with the note.
Comment:
Seen in am with PA.
Wanted NGT out and apparently later in day removed by patient. Denied pain. Admitted to BMs.
Vitals fine. WBC 18.3.
Abdomen mildly distended but soft. Dressings changed and ramona removed. Incision looked good. No skin erythema.
CT scan ordered given persistent leukocytosis. I just now reviewed report and images. Read as PSBO. No leakage of contrast or abscess. Patient's daughter, Jessi, updated via [employer] message.
For now, will continue medical measures. Will keep NGT out unless nausea or emesis--then would replace. Keep npo except ice chips.
Continue empiric antibiotics for now. Cause of leukocytosis unclear.
Original Note:
Today's Communication / Plan
-
CT A/P
Assessment/Plan
-
88 yo female presenting presenting with ileal perforation with surrounding enteritis now POD #4 ex lap with SBR and excision of proximal jejunal mass.
1.� WBC persistent at 18.3.� Vitals normal. Continue antibiotics.
2. Given leukocytosis, CT A/P ordered.
3.� Continue n.p.o. with NG tube until CT A/P and plans from there.
4.� Out of bed as tolerated.
5.� Okay to have ice chips.
6.� DVT prophylaxis: Lovenox, SCDs and teds.
7.� Pain control: Toradol scheduled, morphine as needed.
8.� OR pathology pending.
Subjective Data
Procedure
1) exploratory laparotomy 2) partial small bowel resection 3) excision small bowel mass
Subjective Data
Date of Service: August 14, 2023
Patient states she has no pain. She wants the NGT out. She had several small BMs overnight that were dark. She has had no nausea or vomiting.
Objective Data
-
Vital Signs
Temp Pulse Resp BP Pulse Ox
97.3 F 86 24 165/81 93
08/14/23 00:23 08/14/23 00:04 08/14/23 00:04 08/14/23 00:04 08/14/23 00:04
Intake & Output
08/13/23 08/14/23 08/15/23
06:59 06:59 06:59
Intake Total 3130 / 3130 2590 / 2590
Output Total 2450 / 2450 1800 / 1800
Balance 680 / 680 790 / 790
Intake:
IV fluids (Total) 2300 / 2300 2400 / 2400
IV piggybacks 750 / 750 100 / 100
Amount instilled into GI Tube ( 80 / 80 90 / 90
Total)
[place] Sump 80 / 80 90 / 90
Output:
Gastrointestinal tube output ( 350 / 350 0 / 0
Total)
[place] Sump 350 / 350 0 / 0
Urine, Voided 2100 / 2100 1800 / 1800
Other:
How many times incontinent 1
MODERATE amount urine
How many times incontinent 1
SATURATED amount urine
Lab Results
08/14/23 05:01
08/14/23 05:01
Physical Exam
-
General: No Acute Distress and AOx3
Abdomen: Soft, Non Distended and Non Tender
Skin: Warm and Dry
Wound: Dressing Changed
Incision: Clear, Dry, Intact
[2023-08-14] MEDS: OMNIPAQUE 50 ML PO (09:35)
[2023-08-14 10:23] VITALS: BMI 25.5
--- NOTE | 2023-08-14 12:05 | PTCARENOTE ---
Pt pulled out NGT after admin of contrast solution. Per NOAH Sanchez PA, OK to leave out for now. Will determine course of action following CT scan. Pt forgetful but able to be re-oriented.
--- NOTE | 2023-08-14 12:08 | W.PN.HOSP.TC ---
Today's Communication/Plan
-
Monitor vitals
See plan
Monitor leukocytosis
CT scan
Continue antibiotics
Hydralazine as needed
npo,NGT
Assessment / Plan
Assessment / Plan
Gen: NAD, AAOx3.
Eyes: EOMI, PERRLA, no scleral icterus.
Neck: supple.
CV: RRR, +S1/S2, no m/r/g.
Resp: CTAB, no rales, wheezes, or rhonchi.
Abd: +BS, soft, NT, ND
Skin: No rashes.
Neuro: CN 2-12 intact, non-focal.
Psych: Normal mood and affect.
Abd Xray 08/12/23: NG tube over stomach.
Severe Sepsis secondary secondary to ileal perforation with surrounding enteritis:
-s/p�exploratory laparotomy with partial small bowel resection and excision small bowel mass on 08/11/23
Continue with NG tube (currently at low intermittent suction), n.p.o., fluids
Pain control
cont Zosyn
LFTs continues to be elevated, CT scan today
Lactic acidosis, resolved
BCx NGTD, WCx with GNR
Hyponatremia
monitor
Hypokalemia
Replete
Other problems:
Coronary Artery Disease s/p Multiple stents (most recent 2019): Resume ASA when able to take oral meds
Essential Hypertension: IV Hydralazine PRN
Hyperlipidemia
Hypothyroidism: If unable to take PO would give IV Levoxyl on 08/15/23
FULL/Lovenox
I spent a total of 52 minutes with the patient or on the floor. More than 50% of this time involved counseling and coordination of care.
Anticipated Discharge: > 48 hours
Subjective/Interval History
-
Date of Service: August 14, 2023
Denies abdominal pain
Objective Data
-
Labs:
Laboratory Results
08/14/23
05:01
WBC 18.3 H
Hgb 12.8
Hct 38.7
Plt Count 294
Sodium 132 L
Potassium 3.1 L
Chloride 100
Carbon Dioxide 24
BUN 8
Creatinine 0.5 L
Glucose 77
Calcium 8.7
Vital Signs:
Vital Signs
Temp Pulse Resp BP Pulse Ox
96.3 F L 86 24 165/81 93
08/14/23 07:25 08/14/23 00:04 08/14/23 00:04 08/14/23 00:04 08/14/23 00:04
I&O
08/13/23 08/14/23 08/15/23
06:59 06:59 06:59
Intake Total 3130 / 3130 2590 / 2590
Output Total 2450 / 2450 1800 / 1800
Balance 680 / 680 790 / 790
[2023-08-14 14:04] VITALS: BP 164/104
[2023-08-14] MEDS: APRESOLINE 10 MG IV (14:11)
[2023-08-14] MEDS: NSS (PRESERVATIVE FREE) 0.0125000000000000007 ML IV (15:43)
[2023-08-14] MEDS: ATIVAN 0.25 MG IV (15:44)
[2023-08-14 19:50] VITALS: BP 150/74
[2023-08-14] MEDS: LOVENOX 40 MG SC (19:57)
[2023-08-14] MEDS: LUMIGAN 0.01% 1 DROP BOTH EYES (19:58)
[2023-08-14 20:10] VITALS: BP 150/70
--- NOTE | 2023-08-14 21:00 | PTCARENOTE ---
Pt aaox1, forgetful & confused. Seems to be getting more delirious during her stay. Per nursing report, daughter was here today & stated it is normal for her mom to get confused & forgetful at home. Pt in bed, bed alarm on. Placed on 2L d/t
tachypnea & slight inspiratory wheezing. Pt incontinent BM, liquid brown. Abdomen dressing soiled & changed, cleansed with saline & sterile 4x4 & paper tape placed on top. TEDS on, refused SCDs. Remains NPO. No other issues at this time. [employer] ARCHITECT at
bedside and talked to pt briefly. Bed alarm on, call lira in reach. Will monitor.
[2023-08-14 22:06] VITALS: BP 143/72
--- NOTE | 2023-08-14 22:31 | PTCARENOTE ---
2200 pt transferred from IMU. neuros, at baseline, alert to self, name, /, confused. Pupils PERRLA, strength equal bilat UE and LE, pt unable to identify pictures or able to recall info however this is pts' baseline. NIH completed as pt was
reported to have had a fall in IMU.
--- NOTE | 2023-08-14 22:39 | W.PN.UPDATE ---
Update Note
Progress Note Update
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 Patient seen and evaluated. noted to be sleeping, arousable, Oriented x2, told me she falls all the times and hits head. no new cuts, bruises, swelling noted on head. Knees slightly red,
no other cuts, bruises, or swelling noted. follows commands, PERRLA, equal strength all extremities 5/5. Fall precautions addressed to patient and RN.
[2023-08-15] MEDS: TORADOL 10 MG IV ×4 (00:23→18:04)
[2023-08-15] MEDS: ZOSYN 50 IV ×4 (03:40→21:30)
[2023-08-15 05:10] LABS: % Basophils 0.3 % (0-2); % Eosinophils 0.6 % (0-6); % Immature Granulocytes 2.2 % (0-0.5); % Lymphocytes 4.7 % (20.5-51.1); % Monocytes 5.7 % (1.7-9.3); % Neutrophils 86.5 % (42.2-75.2); Absolute Basophils 0.1 10^3/uL (0-0.2); Absolute Eosinophils 0.1 10^3/uL (0-0.7); Absolute Immature Granulocytes 0.3 10^3/uL (0-0.05); Absolute Lymphocytes 0.7 10^3/uL (1.2-3.4); Absolute Monocytes 0.9 10^3/uL (0.1-0.6); Absolute Neutrophils 13.6 10^3/uL (1.4-6.5); Hematocrit 36.5 % (37.0-47.0); Hemoglobin 11.9 g/dL (12.0-16.0); Mean Corp Hgb Conc. 32.6 g/dL (33.0-37.0); Mean Corpuscular Hgb 28.5 pg (27.0-31.0); Mean Corpuscular Volume 87.3 fL (81.0-99.0); Mean Platelet Volume 9.6 fL (7.4-10.4); Nucleated Red Blood Cells % 0 %; Platelet Count 310 10^3/uL (130-400); Red Blood Cell Count 4.18 10^6/uL (4.20-5.40); Red Cell Dist. Width 13.5 % (11.5-14.5); White Blood Cell Count 15.7 10^3/uL (4.8-10.8)
--- NOTE | 2023-08-15 05:30 | SUR.OPER ---
Addendum entered by Swetha Ruffin, RODRIGO 08/16/23 19:43:
patient care note (note title correction)
Original Note:
neuros PERRLA, equal strength bilat UE and LE. Pt is oriented to place, expressing where she is, still with some confusion but is able to recall partially why she is at [facility] (expressed she had abd pain and had surgery to fix her pain).
[2023-08-15 05:40] LABS: Blood Urea Nitrogen 9 mg/dl (7-17); Calcium 9.2 mg/dl (8.4-10.2); Carbon Dioxide 20 mmol/L (22-30); Chloride 104 mmol/L (98-107); Estimated Creatinine Clearance 58 ml/min; Glucose 93 mg/dl (70-99); Potassium 3.3 mmol/L (3.5-5.1); Sodium 134 mmol/L (135-145); eGFR > 60.00
[2023-08-15 07:05] VITALS: BP 168/91
[2023-08-15] MEDS: KCL 270 MEQ IV (07:47)
[2023-08-15] MEDS: PROTONIX IV 40 MG IV (07:48)
[2023-08-15] MEDS: NSS (PRESERVATIVE FREE) 10 ML IV (07:48)
[2023-08-15] MEDS: NORVASC PO (07:50)
[2023-08-15] MEDS: SIMBRINZA 1%-0.2% OPHTH SUSP 1 DROP RIGHT EYE (07:51)
[2023-08-15 10:20] VITALS: BMI 24.5
--- NOTE | 2023-08-15 10:32 | W.PN.CRS1 ---
Addendum entered and electronically signed by Walker Pool MD 08/15/23 15:07:
For CDI purposes, peritonitis was likely present
Original Note:
Today's Communication / Plan
-
Clears
Assessment/Plan
-
88 yo female presenting presenting with ileal perforation with surrounding enteritis now POD #5 ex lap with SBR and excision of proximal jejunal mass.
1.� WBC down to 15.7 from 18.3.� Vitals normal. Continue antibiotics.
2.� CT reviewed yesterday, shows partial small bowel obstruction.
3.� Advance diet to clears.
4.� Out of bed as tolerated.
5.� Okay to have ice chips.
6.� DVT prophylaxis: Lovenox, SCDs and teds.
7.� Pain control: Toradol scheduled, morphine as needed.
8.� OR pathology pending.
Subjective Data
Procedure
1) exploratory laparotomy 2) partial small bowel resection 3) excision small bowel mass
Subjective Data
Date of Service: August 15, 2023
Patient states that she is having flatus and bowel movements. She is hungry. She denies nausea or vomiting. She complains of back pain. She is urinating without difficulty.
Objective Data
-
Vital Signs
Temp Pulse Resp BP Pulse Ox
97.9 F 97 18 168/91 92
08/15/23 07:05 08/15/23 07:05 08/15/23 07:05 08/15/23 07:05 08/15/23 08:00
Intake & Output
08/14/23 08/15/23 08/16/23
06:59 06:59 06:59
Intake Total 2590 / 2590 100 / 100
Output Total 1800 / 1800 1000 / 1000
Balance 790 / 790 -900 / -900
Intake:
IV fluids (Total) 2400 / 2400
IV piggybacks 100 / 100 100 / 100
Amount instilled into GI Tube ( 90 / 90
Total)
[place] Sump 90 / 90
Output:
Gastrointestinal tube output ( 0 / 0
Total)
[place] Sump 0 / 0
Urine, Voided 1800 / 1800 1000 / 1000
Other:
How many times incontinent 1 1
SATURATED amount urine
Lab Results
08/15/23 04:24
08/15/23 04:24
Physical Exam
-
General: No Acute Distress and AOx3
Abdomen: Soft, Non Distended and Non Tender
Wound: Dressing in Place
Incision: Clear, Dry, Intact
--- NOTE | 2023-08-15 10:53 | W.PN.HOSP.TC ---
Addendum entered and electronically signed by Paul Jones MD 08/15/23 14:39:
Mild shortness of breath. ordered chest x-ray. Chest x-ray with mild cardiomegaly and new bilateral pleural effusion. Give IV Lasix now.Check BNP. Echocardiogram. bladder scan
Original Note:
Today's Communication/Plan
-
monitor vitals
see plan
clears
resume ASA if ok with CRS
resume PO thyroid, amlodipine
pt/ot
Assessment / Plan
Assessment / Plan
Gen: NAD, AAOx3.
Eyes: EOMI, PERRLA, no scleral icterus.
Neck: supple.
CV: RRR, +S1/S2, no m/r/g.
Resp: CTAB, no rales, wheezes
Abd: +BS, soft, NT, ND
Skin: No rashes.
Neuro: CN 2-12 intact, non-focal.
Psych: Normal mood and affect.
Abd Xray 08/12/23: NG tube over stomach.
Severe Sepsis secondary secondary to ileal perforation with surrounding enteritis:
-s/p�exploratory laparotomy with partial small bowel resection and excision small bowel mass on 08/11/23
Patient accidentally took NG tube out 08/13, was not placed back again per colorectal. CT scan noted with possible partial SBO. Trial of clears today
Pain control
cont Zosyn
Follow leukocytosis
Lactic acidosis, resolved
BCx NGTD, WCx with GNR
Hyponatremia
monitor
Hypokalemia
Replete
Anxiety
ativan prn
Other problems:
Coronary Artery Disease s/p Multiple stents (most recent 2019): Resume ASA when able to take oral meds
Essential Hypertension: IV Hydralazine PRN; restart amlodipine
Hyperlipidemia
Hypothyroidism: restart PO thyroid
FULL/Lovenox
I spent a total of 53 minutes with the patient or on the floor. More than 50% of this time involved counseling and coordination of care.
Anticipated Discharge: > 48 hours
Subjective/Interval History
-
Date of Service: August 15, 2023
denies pain
Objective Data
-
Labs:
Laboratory Results
08/15/23
04:24
WBC 15.7 H
Hgb 11.9 L
Hct 36.5 L
Plt Count 310
Sodium 134 L
Potassium 3.3 L
Chloride 104
Carbon Dioxide 20 L
BUN 9
Creatinine 0.5 L
Glucose 93
Calcium 9.2
Vital Signs:
Vital Signs
Temp Pulse Resp BP Pulse Ox
97.9 F 97 18 168/91 92
08/15/23 07:05 08/15/23 07:05 08/15/23 07:05 08/15/23 07:05 08/15/23 08:00
I&O
08/14/23 08/15/23 08/16/23
06:59 06:59 06:59
Intake Total 2590 / 2590 100 / 100
Output Total 1800 / 1800 1000 / 1000
Balance 790 / 790 -900 / -900
[2023-08-15] MEDS: ATIVAN 0.25 MG IV (11:33)
[2023-08-15] MEDS: NORVASC 2.5 MG PO (11:41)
[2023-08-15] MEDS: ASPIR LOW (ENTERIC COATED) 81 MG PO (11:48)
--- NOTE | 2023-08-15 12:06 | PN.CDI ---
CDI
- -
CDI:
Physician Documentation Request
Admit Date: 08/10/23 21:32
Dear Anastasiya Cunningham,
08/13 Pt underwent exploratory laparotomy, partial small bowel resection and excision of small bowel mass.
OR report states Ileal perforation with surrounding enteritis... 'On entering the peritoneal cavity, there was immediate mucopurulent fluid noted, particularly
towards the pelvis'
Peritoneal fluid was positive for Proteus mirabilis and E coli.
Please clarify:
Peritonitis is/was present
Peritonitis not present
Other
Use of terms such as suspected, likely, concern for, or probable (associated with a specific diagnosis that is being evaluated, monitored, or treated as if it exists) are acceptable and can be coded in the inpatient setting, when documented at the
time of discharge.
Thank you,
Jackie Odell RN, BSN
CDI Specialist
tiger text
Please use your independent medical judgment in providing your response.
[2023-08-15] MEDS: DUONEB 3 ML INH (12:14)
--- NOTE | 2023-08-15 13:53 | CM ---
mwt with patient and her daughter at [facility].patient still a little confused,sp colorectal surgery, ont iv abx,start clears.asked daughter for some options for snf rehab.daughter told me she wanted to speak to her brother who is getting a list of
facilities together.daughter will try to obtain list and call me back.
plan is snf rehab when patient stable for discharge.
[2023-08-15 14:36] VITALS: BP 164/98; PULSE 109; PULSE 96; O2SAT 91
[2023-08-15] MEDS: LASIX 20 MG IV (14:54)
[2023-08-15 15:20] VITALS: BP 151/80
--- NOTE | 2023-08-15 15:20 | PTOTSP ---
Speech Language Pathology
Pt seen for clinical bedside swallow evaluation. Consult placed after coughing noted with sip of liquid. Pt stated this was her first sip and probably too large of a sip. P.O. trials of jello, ice chips, and thin liquids via single cup and straw
sips provided. Adequate oral phase with limited consistency. No overt signs of aspiration.
Recommend:
(1) Thin liquids (limited to clear liquids per CRS)
(2) Aspiration precautions: sit upright, single sips, slow rate
(3) Meds as tolerated
(4) CAMERA MAKER to continue to follow
[2023-08-15 16:26] LABS: NT-proBNP 5580 pg/ml
[2023-08-15] MEDS: LOVENOX 40 MG SC (18:04)
[2023-08-15] MEDS: LUMIGAN 0.01% 1 DROP BOTH EYES (21:30)
[2023-08-15 23:00] VITALS: BP 166/91
[2023-08-15] MEDS: APRESOLINE 10 MG IV (23:28)
[2023-08-16] MEDS: ATIVAN 0.25 MG IV (00:05)
[2023-08-16] MEDS: NSS (PRESERVATIVE FREE) 0.125 ML IV (00:05)
[2023-08-16 01:31] VITALS: BP 148/77
[2023-08-16] MEDS: ZOSYN 50 IV ×3 (03:51→16:46)
[2023-08-16 05:02] LABS: % Basophils 0.4 % (0-2); % Immature Granulocytes 2.8 % (0-0.5); % Lymphocytes 5.7 % (20.5-51.1); % Monocytes 6.5 % (1.7-9.3); % Neutrophils 83.6 % (42.2-75.2); Absolute Basophils 0.1 10^3/uL (0-0.2); Absolute Eosinophils 0.2 10^3/uL (0-0.7); Absolute Immature Granulocytes 0.5 10^3/uL (0-0.05); Absolute Lymphocytes 0.9 10^3/uL (1.2-3.4); Absolute Neutrophils 13.2 10^3/uL (1.4-6.5); Hematocrit 35.8 % (37.0-47.0); Hemoglobin 11.7 g/dL (12.0-16.0); Mean Corp Hgb Conc. 32.7 g/dL (33.0-37.0); Mean Corpuscular Hgb 28.1 pg (27.0-31.0); Mean Corpuscular Volume 86.1 fL (81.0-99.0); Mean Platelet Volume 9.4 fL (7.4-10.4); Nucleated Red Blood Cells % 0 %; Platelet Count 362 10^3/uL (130-400); Red Blood Cell Count 4.16 10^6/uL (4.20-5.40); Red Cell Dist. Width 13.6 % (11.5-14.5); White Blood Cell Count 15.8 10^3/uL (4.8-10.8)
[2023-08-16 05:41] LABS: Blood Urea Nitrogen 9 mg/dl (7-17); Calcium 9.5 mg/dl (8.4-10.2); Carbon Dioxide 26 mmol/L (22-30); Chloride 101 mmol/L (98-107); Estimated Creatinine Clearance 58 ml/min; Glucose 126 mg/dl (70-99); Potassium 3.2 mmol/L (3.5-5.1); Sodium 136 mmol/L (135-145); eGFR > 60.00
[2023-08-16] MEDS: SYNTHROID 25 MCG PO (05:58)
[2023-08-16 06:00] VITALS: BMI 24.4
[2023-08-16 07:08] VITALS: BP 148/72
[2023-08-16] MEDS: NORVASC 2.5 MG PO (09:00)
[2023-08-16] MEDS: SIMBRINZA 1%-0.2% OPHTH SUSP 1 DROP RIGHT EYE (09:00)
[2023-08-16] MEDS: PROTONIX IV 40 MG IV (09:01)
[2023-08-16] MEDS: ASPIR LOW (ENTERIC COATED) 81 MG PO (09:01)
[2023-08-16] MEDS: NSS (PRESERVATIVE FREE) 10 ML IV (09:01)
--- NOTE | 2023-08-16 09:37 | W.PN.HOSP.TC ---
Today's Communication/Plan
-
see bold
Assessment / Plan
Assessment / Plan
Gen: NAD, Awake and alert
Eyes: EOMI, PERRLA, no scleral icterus.
Neck: supple.
CV: RRR with frequent premature beats, +S1/S2, no m/r/g.
Resp: rales in the bases, L>R
Abd: +BS, soft, NT, ND
Skin: No rashes. No LE edema
Neuro: CN 2-12 intact, non-focal.
Psych: Normal mood and affect.
08/10/23 21:02 Blood/Venous Blood Culture - Final
No Growth - Final Report
08/10/23 20:59 Blood/Venous Blood Culture - Final
No Growth - Final Report
08/10/23 22:52 Peritoneal Fluid Anaerobic Culture - Preliminary
Culture pending. Anaerobic cultures are examined after 3
days incubation. Additional information to follow.
08/10/23 22:52 Abdomen Wound Culture - Preliminary
Proteus mirabilis
Escherichia coli
08/10/23 22:52 Abdomen Gram Stain - Preliminary
08/11/23 06:27 Nose MRSA Screen - Final
No Methicillin Resistant Staphylococcus aureus isolated.
CT A/P 08/14/23: Postoperative changes consistent with partial small bowel obstruction with small bowel anastomosis in the left hemipelvis associated with mild linear inflammatory stranding and small volume ascites. No evidence of perforation or
abscess and there is no bowel dilatation to suggest obstruction. Small bilateral pleural effusions with associated compressive atelectasis at the posterior lung bases. Diverticuli are present in the colon with no CT evidence of diverticulitis.
Echo: EF 57%. No RWMA, G1DD, nl RV sz/fxn, mild MR/TR, PASP 45-50mmHg.
Severe Sepsis secondary secondary to ileal perforation with surrounding enteritis:
-s/p�exploratory laparotomy with partial small bowel resection and excision small bowel mass on 08/11/23
-Patient accidentally took NG tube out 08/14/23, was not replaced as per CRS. CT scan noted with possible partial SBO. On clears as per CRS.
-Pain control
-cont Zosyn
-BCxs NGTD, WCx with E coli/Proteus
-trend leukocytosis
-Lactic acidosis, resolved
-c/s ID for abx recs
-discussed with CRS
SOB on 08/15/23 due to acute HFpEF:
-s/p 20mg IV lasix on 08/15/23
-echo above
-give 20mg IV lasix now, c/s cards
Other problems:
Coronary Artery Disease s/p Multiple stents (most recent 2019): cont ASA
Essential Hypertension: cont amlodipine, IV Hydralazine PRN
Hyperlipidemia
Hypothyroidism: cont Levoxyl
Hyponatremia, resolved
Hypokalemia: 40meq IV K, check Mg
Anxiety: Ativan PRN
FULL/Lovenox
Total time spent on today's encounter was 50 minutes which included time spent in counseling the patient/family regarding diagnosis and treatment plan as listed above, goals of care, and symptom management. Case was discussed with nursing staff,
specialists, and care coordinators/case management. All labs and imaging personally reviewed by me. Remainder the time spent in detailed review of previous records, lab data, imaging, and other medical provider documentation.
Anticipated Discharge: 24 - 48 hours
Subjective/Interval History
-
Date of Service: August 16, 2023
Denies CP/SOB/abd pain.
Objective Data
-
Labs:
Laboratory Results
08/16/23
04:26
WBC 15.8 H
Hgb 11.7 L
Hct 35.8 L
Plt Count 362
Sodium 136
Potassium 3.2 L
Chloride 101
Carbon Dioxide 26
BUN 9
Creatinine 0.5 L
Glucose 126 H
Calcium 9.5
Vital Signs:
Vital Signs
Temp Pulse Resp BP Pulse Ox
98.1 F 90 18 148/72 93
08/16/23 07:08 08/16/23 07:08 08/16/23 07:08 08/16/23 09:00 08/16/23 07:08
I&O
08/15/23 08/16/23 08/17/23
06:59 06:59 06:59
Intake Total 100 / 100 1340 / 1340
Output Total 1000 / 1000
Balance -900 / -900 1340 / 1340
--- NOTE | 2023-08-16 09:50 | W.PN.CRS1 ---
Today's Communication / Plan
-
low residue diet
Assessment/Plan
-
88 yo female presenting presenting with ileal perforation with surrounding enteritis now POD #6 ex lap with SBR and excision of proximal jejunal mass.
1.� WBC down to 15.8.� Vitals normal. Continue antibiotics. ID being consulted by hospitalist.
2.� Advance diet to low residue with thin liquids.
3.� Daily dressing changes.
4.� Out of bed as tolerated.
5.� Okay to have ice chips.
6.� DVT prophylaxis: Lovenox, SCDs and teds.
7.� Pain control: Toradol scheduled, change morphine IV to oxycodone po.
8.� OR pathology pending.
9. Okay for discharge from our perspective if tolerates low residue diet. Discussed with hospitalist, likely patient needs another day from a medical standpoint.
Subjective Data
Procedure
1) exploratory laparotomy 2) partial small bowel resection 3) excision small bowel mass
Subjective Data
Date of Service: August 16, 2023
Patient states she feels 'good' overall. She is having bowel movements and flatus. She is hungry and tolerated clears. She states she has no pain.
Objective Data
-
Vital Signs
Temp Pulse Resp BP Pulse Ox
98.1 F 90 18 148/72 93
08/16/23 07:08 08/16/23 07:08 08/16/23 07:08 08/16/23 09:00 08/16/23 08:00
Intake & Output
08/15/23 08/16/23 08/17/23
06:59 06:59 06:59
Intake Total 100 / 100 1340 / 1340
Output Total 1000 / 1000
Balance -900 / -900 1340 / 1340
Intake:
Oral fluids 720 / 720
IV fluids (Total) 210 / 210
IV piggybacks 100 / 100 410 / 410
Output:
Urine, Voided 1000 / 1000
Other:
How many times incontinent 1 2
SATURATED amount urine
Lab Results
08/16/23 04:26
08/16/23 04:26
Physical Exam
-
General: No Acute Distress and AOx3
Abdomen: Soft, Non Distended and Non Tender
Wound: Dressing Changed
Incision: Clear, Dry, Intact
[2023-08-16] MEDS: LASIX 20 MG IV ×2 (10:19→16:46)
[2023-08-16] MEDS: KCL 270 MEQ IV (10:20)
[2023-08-16 10:25] LABS: Magnesium 1.7 mg/dl (1.6-2.3)
[2023-08-16 14:35] VITALS: BP 144/75; PULSE 80
[2023-08-16 14:58] VITALS: BP 144/75
--- NOTE | 2023-08-16 15:03 | CON.CAR ---
Consultation
Consultation Request
Date/Time Consultation Requested: 08/16/23
Date/Time Consultation Performed: 08/16/23
Requesting Provider: Dr. Ordonez
Performing Provider: Dr. Trevino
Reason for Consultation: Acute HF
Medical History
-
History of Present Illness:
Patient came to [facility] with abdominal pain on 08/10/23 and after being found to have a small bowel perforation she had urgent surgery, cardiology is now being consulted for acute HF. Patient was at home with abdominal pain and called 911, she asked
paramedics to bring her to [facility] from her home in [place]. Patient was found to have a small bowel perforation and had urgent surgery with small bowel resection and excision of a small bowel mass with pathology pending. Patient has received about 8 L
IVFs since admission. Patient complained of SOB yesterday and was given Lasix 20 mg IV x1 with increased urine output weight down 1 lb overnight. Echo showed normal EF and mild MR. Cardiology is now consulted for acute HF. Patient was not taking a
diuretic prior ot admission. Patient used to follow with Dr. Guzman and was last seen 03/12/18 and she now follows with a lead caster in the [facility] system. She reports CAD with PCI as recently as 2019 and she remains on aspirin 81 mg daily. Denies h/o
CHF.
PMH:
CAD s/p PCI details unknown
HTN
Hyperlipidemia
Past Medical History
Past Medical History: Other (in HPI)
Past Surgical History: Bowel Resection (partial small bowel resection and excision of bowel mass), Gynecological (hysterectomy) and Other (partial thyroidectomy)
Social History
Tobacco: Non-Smoker
Alcohol: Occasional
Drug: None
Living: With Family
Family History
Family History: CAD, Cancer, Diabetes and Hypertension
Allergies / Home Medications
Allergy/AdvReac Type Severity Reaction Status Date / Time
No Known Allergies Allergy Verified 10/05/22 13:09
Medication Instructions Recorded Confirmed Type
ascorbic acid (vitamin C) 500 mg 500 mg PO DAILY Supplement 01/23/10 08/10/23 History
tablet (Vitamin C)
cholecalciferol (vitamin D3) 25 25 mcg PO DAILY Supplement 01/23/10 08/10/23 History
mcg (1,000 unit) tablet (Vitamin
D3)
docosahexaenoic acid (dha)-epa 120 1 cap PO DAILY Supplement 01/23/10 08/10/23 History
mg-180 mg capsule
folic acid 1 mg tablet 1 mg PO DAILY Supplement 01/23/10 08/10/23 History
levothyroxine 25 mcg tablet 25 mcg PO DAILY AT 0700 Thyroid 01/23/10 08/11/23 History
(Synthroid)
multivitamin with folic acid 400 1 tab PO DAILY Supplement 01/23/10 08/10/23 History
mcg tablet (Tab-A-Courtney)
aspirin 81 mg tablet,delayed 81 mg PO DAILY Blood Clot 02/28/13 08/10/23 History
release Prevention/Tx
amlodipine 2.5 mg tablet 2.5 mg PO DAILY Blood Pressure 08/10/23 08/10/23 History
bimatoprost 0.01 % eye drops 1 drp BOTH EYES HS Eye Condition 08/10/23 08/10/23 History
(Lumigan)
brinzolamide 1 %-brimonidine 0.2 % 1 drp RIGHT EYE DAILY Eye Condition 08/10/23 08/10/23 History
eye drops,suspension (Simbrinza)
coenzyme Q10 100 mg capsule (Co 100 mg PO DAILY Supplement 08/10/23 08/10/23 History
Q-10)
diphenhydramine HCl 25 mg capsule 25 mg PO HS Sleep 08/10/23 08/10/23 History
(ZzzQuil)
estradiol 2 mg (7.5 mcg/24 hour) 1 vag ring vaginal [id number] 08/10/23 08/10/23 History
vaginal ring (Estring) Hormonal Agent
red yeast rice 600 mg tablet 600 mg PO DAILY herbal supplement 08/10/23 08/10/23 History
Review of Systems
-
History Source: Patient
All other systems: Negative unless noted
Physical Exam
Vital Signs
Temp Pulse Resp BP Pulse Ox
98.3 F 85 18 144/75 97
08/16/23 14:58 08/16/23 14:58 08/16/23 14:58 08/16/23 14:58 08/16/23 14:58
GEN: NAD, AAOx3
HEENT: EOMI, MMM
LUNGS: CTA B/L, no wheezes or rales
CV: Reg, S1/S2, no murmur
ABD: soft, BS+, NT, ND
EXT: No clubbing, cyanosis, lesions or edema B/L
NEURO: Gross non-focal
SKIN: Warm, dry and pink. No rash
Lab Results
08/16/23 04:26
08/16/23 04:26
Mop-S-Ntckyhxzjrt Pept 5580 pg/ml 08/15/23 04:24
Impression / Plan
-
PCP: Dr. Cat
Cardiology: Previously followed with Dr. Guzman and now following at [facility] Cardiology
Impression:
Admitted with abdominal pain and small bowel perforation 08/10/23
s/p exploratory laparotomy with partial small bowl resection and excision of small bowel mass 08/10/23
Severe sepsis and enteritis
E coli and Proteus positive wound culture
Acute HFpEF
CAD s/p PCI details unknown
HTN
Hyperlipidemia
Hypokalemia
Hyponatremia
Echo 08/15/23: EF 57%, midl MR, mod TR
Plan:
-Patient came to [facility] with abdominal pain on 08/10/23 and after being found to have a small bowel perforation she had urgent surgery, cardiology is now being consulted for acute HF. Patient was at home with abdominal pain and called 911, she asked
paramedics to bring her to [facility] from her home in [place]. Patient was found to have a small bowel perforation and had urgent surgery with small bowel resection and excision of a small bowel mass with pathology pending. Patient has received about 8 L
IVFs since admission. Patient complained of SOB yesterday and was given Lasix 20 mg IV x1 with increased urine output weight down 1 lb overnight. Echo showed normal EF and mild MR. Cardiology is now consulted for acute HF. Patient was not taking a
diuretic prior ot admission. Patient used to follow with Dr. Guzman and was last seen 03/12/18 and she now follows with a lead caster in the [facility] system. She reports CAD with PCI as recently as 2019 and she remains on aspirin 81 mg daily. Denies h/o
CHF.
-Called to talk with patient's daughter, Ktaherine, but not answer so left a message asking for call back to discuss patient's care and to get the # of her primary lead caster to call for records.
-IVFs stopped
-Weight is down with Lasix 20 mg IV yesterday and today. Patient was not taking a diuretic prior to admission. Will give another dose of Lasix 20 mg IV this evening.
-Will need to establish a dry weight, suspect patient has lost muscle mass/caloric weight this admission and the equalized with water weight.
-EF stable by echo
-Patient was not taking a BB prior to admission. Not listed as an allergy. Not clear if patient has had medication intolerances in the past. Await records from primary lead caster once we get a name
-Cont outpatient dose of amlodipine 2.5 mg daily
-Cont aspirin 81 mg daily. Patient reports h/o PCI in 2019, need records.
-Check ECG
-Added patient to tele
--- NOTE | 2023-08-16 15:32 | PTOTSP ---
ST Follow-Up
Pt currently demonstrates mild to moderate oropharyngeal dysphagia characterized by prolonged mastication, reduced bolus formation, and persistent throat clearing with coughing during mastication and s/p swallow initiations across all consistencies.
Recommendations:
- NPO x critical meds crushed in puree
- ARHP - occasional ice chips
- Aspiration precautions; oral care TID
- Video fluoroscopic swallow study
--- NOTE | 2023-08-16 15:32 | CM ---
patient to cont tyson lechuga, ngtd.anisha recommended snf rehab for patient.left [facility] for donita to return my call re snf choices.spoke with son krystal who wanted snf referrals sent [facility] and [facility] in [place].claire pugh
manager cardiovascular informed cm that no beds are available at [facility].no response yet from [facility].
Plan: snf rehab when stable for discharge.
--- NOTE | 2023-08-16 16:58 | CON.ID ---
Consultation
-
Date/Time Consultation Requested: 08/16/2023 09:44
Date/Time Consultation Performed: 08/16/2023 1645
Requesting Provider: Dr. Ordonez
Performing Provider: Dr. Palma
Reason for Consultation: Perforated viscus
Chief Complaint / Past History
History of Present Illness
Breanne Medley is an 88-year-old female being evaluated at the request of Dr. Ordonez in regards to perforated viscus and antibiotic management. History is obtained from chart review, along with patient interview.
The patient was admitted on August 09 after presenting to the emergency room secondary to nausea and vomiting beginning approximately 48 hours prior. She admitted to diffuse abdominal pain at that time, and attributed to eating bad shrimp several
days before. Workup in the emergency room revealed leukocytosis, and CT imaging revealed a small bowel obstruction with a focal small bowel perforation. The patient was taken to the OR where she underwent an exploratory laparotomy, partial small
bowel resection and excision of a small bowel mass. Cultures at that time revealed the presence of pansensitive Proteus mirabilis and E. coli. The patient is currently on day #7 of antibiotics, and Infectious Diseases is asked to comment upon
further antimicrobial therapy.
At present, the patient denies any headache, fevers or chills. No history of rigors.. She denies any shortness of breath, cough or congestion. She denies any abdominal pain. She notes loose/mushy stool, but not ayanna diarrhea. She denies any
lower extremity pain.
Past History
Additional Past Medical History:
HTN
Dyslipidemia
Hypothyroidism
Anxiety
Hx TIA
Hx diverticulitis
Additional Past Surgical History:
FOREST
Allergy History:
No Known Allergies Allergy (Verified 10/05/22 13:09)
Medications Reviewed: Yes
Current Antibiotics:
Zosyn 3.375 g IV every 6 hours (d#7)
Social History
Tobacco: Non-Smoker
Alcohol: None
Drug: None
Personal:
Living: With Family
Employment: Retired
Family History
Family History: Not Pertinent
Review of Systems
Vital Signs
Temp Pulse Resp BP Pulse Ox
98.3 F 85 18 144/75 97
08/16/23 14:58 08/16/23 14:58 08/16/23 14:58 08/16/23 14:58 08/16/23 14:58
Physical Exam
Physical Exam
Constitutional: No Acute Distress, Comfortable, Chronically Ill and Non-toxic
Head: Normocephalic
Eyes: Pupils Equal, Pupils Round, No Conjunctival Hemorrhage and Sclera Anicteric
Oral: No Thrush and No Ulcers
Cardiovascular: S1/S2; Negative S3/S4 or Murmur
Pulmonary: Non Labored; Negative Wheezes, Rales or Rhonchi
Gastrointestinal: Soft, Non Tender, Non Distended and Normal Bowel Sounds
Extremities: Edema; Negative Cyanosis or Erythema
Wound: Other (Midline abdominal wound dressed.)
Neurological: Awake and Alert
Psychological: Calm
.
Lab / Diagnostic Study Results
08/16/23 04:26
08/16/23 04:26
Abs Immat Gran (auto) 0.5 10^3/uL (0-0.05) H 08/16/23 04:26
Absolute Neuts (auto) 13.2 10^3/uL (1.4-6.5) H 08/16/23 04:26
Absolute Lymphs (auto) 0.9 10^3/uL (1.2-3.4) L 08/16/23 04:26
Absolute Monos (auto) 1.0 10^3/uL (0.1-0.6) H 08/16/23 04:26
Absolute Basos (auto) 0.1 10^3/uL (0-0.2) 08/16/23 04:26
Total Counted 100 08/11/23 04:03
Immature Gran % 2.8 % (0-0.5) H 08/16/23 04:26
Neutrophils % 83.6 % (42.2-75.2) H 08/16/23 04:26
Lymphocytes % 5.7 % (20.5-51.1) L 08/16/23 04:26
Monocytes % 6.5 % (1.7-9.3) 08/16/23 04:26
Eosinophils % 1.0 % (0-6) 08/16/23 04:26
Basophils % 0.4 % (0-2) 08/16/23 04:26
Abs Neuts (Manual) 15.2 10^3/uL (1.4-6.5) H 08/11/23 04:03
Segmented Neutrophils 59 % (42-75) 08/11/23 04:03
Band Neutrophils 34 % (0-3) H D 08/11/23 04:03
Lymphocytes (Manual) 2 % (20-51) L 08/11/23 04:03
Lactic Acid 1.6 mmol/L (0.7-2.0) 08/11/23 14:21
Microbiology Results
Micro:
08/10/23 22:52 Anaerobic Culture - Final
Peritoneal Fluid NO ANAEROBES ISOLATED
08/10/23 22:52 Wound Culture - Final
Abdomen Proteus mirabilis
Escherichia coli
Gram Stain - Final
08/10/23 21:02 Blood Culture - Final
Blood/Venous No Growth - Final Report
08/10/23 20:59 Blood Culture - Final
Blood/Venous No Growth - Final Report
08/11/23 06:27 MRSA Screen - Final
Nose No Methicillin Resistant Staphylococcus aureus isolated.
Imaging:
08/14/2023 CT abdomen/pelvis: Postoperative changes consistent with partial small bowel obstruction and small bowel anastomosis in the left hemipelvis. There is mild linear inflammatory stranding and small volume ascites. No evidence of perforation
or abscess, and no bowel dilatation to suggest ongoing obstruction. Biliary sludge noted in the gallbladder. Small bilateral renal cysts noted. Diverticuli are present in the colon, with no CT evidence of diverticulitis. Please see full
dictation for additional detail. Film personally viewed.
Assessment / Plan
SBO /perforated viscus
- s/p Exp lap 08/11/2023
Bacterial peritonitis
Cultures with pansensitive E. coli and Proteus mirabilis
Leukocytosis
HTN
Dyslipidemia
Hypothyroidism
Anxiety
Hx TIA
Hx diverticulitis
Recommendations:
Narrow antibiotics to cefazolin 2 g IV every 8 hours.
Monitor white count and temperature curve. Patient has remained afebrile since her single isolated fever at admission.
Leukocytosis noted, although elevated WBC noted present in 2022 and 2017. If remains elevated, may require further outpatient workup.
At discharge, can transition to oral Keflex, to complete a 14-day course (through 08/24/2023)
[2023-08-16] MEDS: ANCEF 10 IV (18:07)
[2023-08-16] MEDS: LOVENOX 40 MG SC (18:07)
[2023-08-16 19:00] VITALS: BP 156/68
[2023-08-16] MEDS: LUMIGAN 0.01% 1 DROP BOTH EYES (20:25)
[2023-08-16 23:00] VITALS: BP 155/75
[2023-08-17] MEDS: MORPHINE SULFATE 2 MG IV (01:36)
[2023-08-17] MEDS: ANCEF 10 IV ×3 (02:00→17:21)
[2023-08-17 03:11] VITALS: BP 147/87
[2023-08-17 05:43] VITALS: BMI 23.8
[2023-08-17] MEDS: SYNTHROID 25 MCG PO (06:30)
--- NOTE | 2023-08-17 06:38 | PTCARENOTE ---
pt was able to tolerate ice chips and her Synthroid in applesauce without difficulty, no cough or respiratory distress noted.
[2023-08-17 08:00] VITALS: BP 168/82
[2023-08-17] MEDS: NORVASC 2.5 MG PO (08:25)
[2023-08-17] MEDS: ASPIR LOW (ENTERIC COATED) 81 MG PO (08:25)
[2023-08-17] MEDS: SIMBRINZA 1%-0.2% OPHTH SUSP 1 DROP RIGHT EYE (08:26)
[2023-08-17] MEDS: PROTONIX IV 40 MG IV (08:26)
[2023-08-17] MEDS: NSS (PRESERVATIVE FREE) 10 ML IV (08:26)
[2023-08-17] MEDS: KCL 270 MEQ IV (09:26)
--- NOTE | 2023-08-17 09:44 | W.PN.CARDCBS ---
Addendum entered and electronically signed by Herrera Kennedy DO 08/17/23 11:53:
I saw and examined the patient.
The Global Upstream Marketing Manager's note was reviewed and I agree with the note.
Comment:
No acute events overnight, patient resting comfortably. Notes fatigue. Denies cp, sob, palpitations, lh, dizziness, near syncope, syncope, or weakness. Ambulating without difficulty per patient.
GEN: frail elderly female in no distress, awake, alert, oriented x3
HEENT: supple, anicteric, mmm, eomi
LUNGS: CTA B/L, no wheezes/rales
CV: Reg, S1/S2, no murmur
ABD: soft, BS+, NT/ND
EXT: No cyanosis, clubbing, edema. TEDs in place
NEURO: Gross non-focal
SKIN: Warm, pink, dry. No rash
A/P as below
Additional lasix dose today, monitor weights/output
Awaiting electrolytes; goal K>4, Mg>2
Toprol XL 25 mg daily for BP, ectopy, CAD
Monitor on telemetry
Stable from cardiovascular standpoint
Original Note:
Today's Communication / Plan
-
consider for additional IV lasix 20mg x1 again today then likely stop
awaiting BMP/mag. replete as needed to keep K>4, mag>2
stop norvasc, transition to toprol 25mg daily
follow on tele
Impression / Plan
-
PCP: Dr. Cat
Cardiology: Previously followed with Dr. Guzman and now following at [facility] Cardiology, Dr. Sandhu [phone]
Impression:
Admitted with abdominal pain and small bowel perforation 08/10/23
s/p exploratory laparotomy with partial small bowl resection and excision of small bowel mass 08/10/23
Severe sepsis and enteritis
E coli and Proteus positive wound culture
Acute HFpEF
CAD s/p LAD PCI x2, ostial D1 PCI 02/2013, RCA PCI 05/2019
Chronic LBBB
HTN
Hyperlipidemia with statin 'intolerance'
Hypothyroidism
Hypokalemia
Hyponatremia
Echo 08/15/23: EF 57%, mild MR, mod TR
Plan:
-she presented with abd pain and small bowel perf. s/p partial small bowel resection 08/10/23. continue post op care. for video swallow today
-weight trending down if accurate. was given 20mg IV lasix 08/14 and 20mg IV BID 08/15. consider for additional 20mg IV today. dry weight unknown, but weight on arrival was 142 pounds. 143 pounds today if accurate. she was not on po lasix prior to
admission.
-Cr stable. awaiting BMP/mag from this morning. may require additional K/mag repletion
-EF preserved by echo 08/14
-records obtained and reviewed from patient's primary car repairer helper, Dr. Sandhu including last office note and EKG 08/03/23, echo 01/12/21, cath report 05/30/19
-patient on norvasc 2.5mg daily prior to admission, however not best option with CHF. also tele with frequent PACs, atrial couplets, PVCs, brief AT, and brief NSVT overnight. no overt afib noted. will plan to transition to toprol 25mg daily and
uptitrate as able
-Cont aspirin 81 mg daily
-she has history of 'intolerance' to statins claiming a UTI from atorvastatin and constipation from crestor per daughter. on red yeast rice as OP
-check TSH
-PT/OT
-OP follow up to Dr. Sandhu
-d/w nursing
-d/w daughter Katherine via telephone 08/16.
PREADMIT DATA:
-Patient came to [facility] with abdominal pain on 08/10/23 and after being found to have a small bowel perforation she had urgent surgery, cardiology is now being consulted for acute HF. Patient was at home with abdominal pain and called 911, she asked
paramedics to bring her to [facility] from her home in [place]. Patient was found to have a small bowel perforation and had urgent surgery with small bowel resection and excision of a small bowel mass with pathology pending. Patient has received about 8 L
IVFs since admission. Patient complained of SOB yesterday and was given Lasix 20 mg IV x1 with increased urine output weight down 1 lb overnight. Echo showed normal EF and mild MR. Cardiology is now consulted for acute HF. Patient was not taking a
diuretic prior ot admission. Patient used to follow with Dr. Guzman and was last seen 03/12/18 and she now follows with a car repairer helper in the [facility] system. She reports CAD with PCI as recently as 2019 and she remains on aspirin 81 mg daily. Denies h/o
CHF.
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
Subjective
Date of Service: August 17, 2023
denies SOB, palpitations. reports good urine output
Objective
Labs:
08/16/23 04:26
08/16/23 04:26
Labs
Hgb 11.7 g/dL (12.0-16.0) L 08/16/23 04:26
Hct 35.8 % (37.0-47.0) L 08/16/23 04:26
Plt Count 362 10^3/uL (130-400) 08/16/23 04:26
Sodium 136 mmol/L (135-145) 08/16/23 04:26
Potassium 3.2 mmol/L (3.5-5.1) L 08/16/23 04:26
BUN 9 mg/dl (7-17) 08/16/23 04:26
Creatinine 0.5 mg/dL (0.6-1.0) L 08/16/23 04:26
Glucose 126 mg/dl (70-99) H 08/16/23 04:26
Vital Signs and I&O:
Vital Signs
Temp Pulse Resp BP Pulse Ox
98.9 F 90 24 168/82 94
03/22/24 08:00 08/17/23 08:25 08/17/23 08:00 08/17/23 08:25 08/17/23 08:00
Vital Signs
Temp Pulse Resp BP Pulse Ox
98.9 F 90 24 168/82 94
08/17/23 08:00 08/17/23 08:25 08/17/23 08:00 08/17/23 08:25 08/17/23 08:00
Intake & Output
08/15/23 08/16/23 08/17/23 08/18/23
07:59 07:59 07:59 07:59
Intake Total 100 / 100 1340 / 1340 530 / 530
Output Total 1000 / 1000
Balance -900 / -900 1340 / 1340 530 / 530
Physical Exam
Physical Exam
GEN: frail elderly female in no distress, awake, alert, oriented x3
HEENT: supple, anicteric, mmm, eomi
LUNGS: CTA B/L, no wheezes/rales
CV: Reg, S1/S2, no murmur
ABD: soft, BS+, NT/ND
EXT: No cyanosis, clubbing, edema. TEDs in place
NEURO: Gross non-focal
SKIN: Warm, pink, dry. No rash
--- NOTE | 2023-08-17 09:58 | PTOTSP ---
Video Swallow Examination
Patient presents with WFL-mild oral and mild pharyngeal stage of swallowing. Esophageal sweep concerning for esophageal dysphagia. Etiology of swallowing is likely deconditioning from acute illness. No aspiration occurred. Please see patient
care note for full details of penetration and swallowing physiology.
Recommend:
1. Regular (pick soft/moist foods), Thin Liquids via cup
2. Medications - in applesauce (whole and/or crushed)
3. Strategies: upright to 90 degrees, pick soft/moist foods (for ease of oral/pharyngeal/esophageal clearance), alternate solids and liquids (to assist with clearance), double swallows, avoid straw
4. Oral care 3-5x daily
5. Dysphagia therapy warranted at the acute care level for patient education about results of this study, instruction in compensations, and pharyngeal exercises.
--- NOTE | 2023-08-17 10:12 | W.PN.HOSP.TC ---
Today's Communication/Plan
-
see bold
Assessment / Plan
Assessment / Plan
Gen: remains NAD, Awake and alert
Eyes: EOMI, PERRLA, no scleral icterus.
Neck: supple.
CV: RRR with occasional premature beats, +S1/S2, no m/r/g.
Resp: CTAB anteriorly
Abd: +BS, soft, NT, ND
Skin: No rashes. No LE edema
Neuro: CN 2-12 intact, non-focal.
Psych: Normal mood and affect.
08/10/23 22:52 Peritoneal Fluid Anaerobic Culture - Final
NO ANAEROBES ISOLATED
08/10/23 22:52 Abdomen Wound Culture - Final
Proteus mirabilis
Escherichia coli
08/10/23 22:52 Abdomen Gram Stain - Final
08/10/23 21:02 Blood/Venous Blood Culture - Final
No Growth - Final Report
08/10/23 20:59 Blood/Venous Blood Culture - Final
No Growth - Final Report
08/11/23 06:27 Nose MRSA Screen - Final
No Methicillin Resistant Staphylococcus aureus isolated.
CT A/P 08/14/23: Postoperative changes consistent with partial small bowel obstruction with small bowel anastomosis in the left hemipelvis associated with mild linear inflammatory stranding and small volume ascites. No evidence of perforation or
abscess and there is no bowel dilatation to suggest obstruction. Small bilateral pleural effusions with associated compressive atelectasis at the posterior lung bases. Diverticuli are present in the colon with no CT evidence of diverticulitis.
Echo: EF 57%. No RWMA, G1DD, nl RV sz/fxn, mild MR/TR, PASP 45-50mmHg.
Severe Sepsis secondary secondary to ileal perforation with surrounding enteritis:
-s/p�exploratory laparotomy with partial small bowel resection and excision small bowel mass on 08/11/23
-Patient accidentally took NG tube out 08/14/23, was not replaced as per CRS. CT scan noted with possible partial SBO. On clears as per CRS.
-Pain control
-was on Zosyn, now on Ancef as per ID. On discharge abx can be narrowed to Keflex through 08/24/23.
-BCxs NGTD, WCx with E coli/Proteus
-trend leukocytosis
-Lactic acidosis, resolved
SOB on 08/15/23 due to acute HFpEF:
-s/p doses of IV lasix on 08/15/23 and 08/16/23
-echo above
-cardiology following
-start BB (also for ectopy)
Other problems:
Coronary Artery Disease s/p Multiple stents (most recent 2019): cont ASA
Essential Hypertension: stop amlodipine, start BB with ectopy, IV Hydralazine PRN
Hyperlipidemia
Hypothyroidism: cont Levoxyl
Hyponatremia, resolved
Hypokalemia: follow K and Mg today
Anxiety: Ativan PRN
Case discussed with cardiology. Family updated at bedside
FULL/Lovenox
Total time spent on today's encounter was 51 minutes which included time spent in counseling the patient/family regarding diagnosis and treatment plan as listed above, goals of care, and symptom management. Case was discussed with nursing staff,
specialists, and care coordinators/case management. All labs and imaging personally reviewed by me. Remainder the time spent in detailed review of previous records, lab data, imaging, and other medical provider documentation.
Anticipated Discharge: 24 - 48 hours
Subjective/Interval History
-
Date of Service: August 17, 2023
No new complaints.
Objective Data
-
Labs:
Laboratory Results
08/17/23
09:44
Sodium Pending
Potassium Pending
Chloride Pending
Carbon Dioxide Pending
BUN Pending
Creatinine Pending
Glucose Pending
Calcium Pending
Vital Signs:
Vital Signs
Temp Pulse Resp BP Pulse Ox
98.9 F 90 24 168/82 94
08/17/23 08:00 08/17/23 08:25 08/17/23 08:00 08/17/23 08:25 08/17/23 08:00
I&O
08/16/23 08/17/23 08/18/23
06:59 06:59 06:59
Intake Total 1340 / 1340 530 / 530
Balance 1340 / 1340 530 / 530
[2023-08-17] MEDS: OCEAN, SALINE MIST 2 SPRAYS NASAL (10:33)
--- NOTE | 2023-08-17 10:40 | W.PN.CRS1 ---
Today's Communication / Plan
-
Continue low residue
Clear for D/C from CRS standpoint; we will sign off
Abx per ID
Assessment/Plan
-
88-year-old female with PMH of CAD (h/o multiple stents, last 05/2019), HTN, HLD, hypothyroid who presents with acute abdominal pain and found to have SBO with focal perforation at transition point;
POD6 s/p ex lap with small bowel resection; c/b persistent leukocytosis, CT showing postoperative changes with contrast to the colon
Having bowel function
AFVSS, abd soft, minimally distended, appropriately tender
Labs pending
�Continue low residue for 1-2 weeks; appreciate ENDODONTIC ASSISTANT, s/p MBSS, no restrictions
� Continue pain control with tylenol/motrin, oxy PRN
� Continue DVT PPx with Lovenox
� OOB/IS, recommend PT consult; PT recommending skilled rehab
� Continue ancef; appreciate ID
� Follow-up path
� Appreciate hospitalist
Dispo�okay for discharge from CRS standpoint; follow-up with Dr. Marx in 1 to 2 weeks
-will sign off, please call for any questions or concerns
Subjective Data
Procedure
1) exploratory laparotomy 2) partial small bowel resection 3) excision small bowel mass
Subjective Data
Date of Service: August 17, 2023
No overnight events.
Pain controlled.
Denies nausea/vomiting. Tolerating diet.
+flatus +BMs +voiding
Pt is OOB.
Objective Data
-
Vital Signs
Temp Pulse Resp BP Pulse Ox
98.9 F 90 24 168/82 94
08/17/23 08:00 08/17/23 08:25 08/17/23 08:00 08/17/23 08:25 08/17/23 08:00
Intake & Output
0308/17/23 08/18/23
06:59 06:59 06:59
Intake Total 1340 / 1340 530 / 530
Balance 1340 / 1340 530 / 530
Intake:
Oral fluids 720 / 720 480 / 480
IV fluids (Total) 210 / 210
IV piggybacks 410 / 410 50 / 50
Other:
How many times incontinent 1
SMALL amount urine
How many times incontinent 2
MODERATE amount urine
How many times incontinent 2 1
SATURATED amount urine
Physical Exam
-
General: No Acute Distress and AOx3
HEENT: Grossly Normal
Abdomen: Soft, Non Distended, Non Tender, No Guarding and No Rebound
Skin: Warm and Dry
Wound: No Signs of Infection, Dressing in Place and No Skin Erythema
[2023-08-17 11:06] LABS: Hematocrit 34.3 % (37.0-47.0); Hemoglobin 11.5 g/dL (12.0-16.0); Mean Corp Hgb Conc. 33.5 g/dL (33.0-37.0); Mean Corpuscular Hgb 28.7 pg (27.0-31.0); Mean Corpuscular Volume 85.5 fL (81.0-99.0); Mean Platelet Volume 9.2 fL (7.4-10.4); Platelet Count 380 10^3/uL (130-400); Red Blood Cell Count 4.01 10^6/uL (4.20-5.40); Red Cell Dist. Width 13.5 % (11.5-14.5)
[2023-08-17 11:30] LABS: Blood Urea Nitrogen 12 mg/dl (7-17); Calcium 9.4 mg/dl (8.4-10.2); Carbon Dioxide 29 mmol/L (22-30); Chloride 100 mmol/L (98-107); Estimated Creatinine Clearance 58 ml/min; Glucose 152 mg/dl (70-99); Magnesium 1.5 mg/dl (1.6-2.3); Potassium 3.4 mmol/L (3.5-5.1); Sodium 136 mmol/L (135-145); eGFR > 60.00
[2023-08-17 12:00] VITALS: BP 137/63
[2023-08-17 12:00] LABS: TSH Reflex To Free T4 3.35 uIU/ml (0.47-4.68)
[2023-08-17] MEDS: TOPROL XL 25 MG PO (12:13)
[2023-08-17] MEDS: LASIX 20 MG IV (13:10)
[2023-08-17] MEDS: MAGNESIUM OXIDE 500 MG PO (13:10)
[2023-08-17] MEDS: KCL 20 MEQ PO (13:10)
--- NOTE | 2023-08-17 13:31 | W.PN.ID1 ---
Date of Service
Date of Service: August 17, 2023
Today's Communication
Continue abx. See below...
Assessment / Plan
SBO /perforated viscus
- s/p Exp lap 08/11/2023
Bacterial peritonitis
Cultures with pansensitive E. coli and Proteus mirabilis
Leukocytosis
HTN
Dyslipidemia
Hypothyroidism
Anxiety
Hx TIA
Hx diverticulitis
Recommendations:
Continue cefazolin 2 g IV every 8 hours.
Monitor white count and temperature curve. Patient has remained afebrile since her single isolated fever at admission.
Leukocytosis noted, although elevated WBC noted present in 2022 and 2017. If remains elevated, may require further outpatient workup.
--> At discharge, can transition to oral Keflex, to complete a 14-day course (through 08/24/2023)
����������������������������������������������������������
Chief Complaint
-: Other (Abdominal abscess)
Subjective / Review of Systems
Review of Systems: No Fever, No Chills and No Abdominal Pain
Vital Signs / Physical Exam
Vital Signs
Vital Signs
Temp Pulse Resp BP Pulse Ox
98.5 F 65 16 137/63 95
08/17/23 12:00 08/17/23 12:00 08/17/23 12:00 08/17/23 12:00 08/17/23 12:00
Physical Exam
Constitutional: No Acute Distress, Comfortable and Non-toxic
Eyes: Sclera Anicteric
Cardiovascular: S1/S2; Negative S3/S4
Pulmonary: Non Labored
Gastrointestinal: Soft and Normal Bowel Sounds
Skin: Warm and Dry; Negative Rash or Jaundice
Neurological: Awake and Alert
Objective Data
Lab Data
Lab Results
08/17/23 10:57
08/17/23 10:57
Estimated Creat Clear 58 ml/min 08/17/23 10:57
Lactic Acid 1.6 mmol/L (0.7-2.0) 08/11/23 14:21
Total Bilirubin 2.2 mg/dl (0.2-1.3) H 08/10/23 19:27
AST 27 U/L (14-36) 08/10/23 19:27
ALT 23 U/L (0-35) 08/10/23 19:27
Alkaline Phosphatase 79 U/L (38-126) 08/10/23 19:27
Most recent labs reviewed.
Micro Results:
08/10/23 22:52 Anaerobic Culture - Final
Peritoneal Fluid NO ANAEROBES ISOLATED
08/10/23 22:52 Wound Culture - Final
Abdomen Proteus mirabilis
Escherichia coli
Gram Stain - Final
08/10/23 21:02 Blood Culture - Final
Blood/Venous No Growth - Final Report
08/10/23 20:59 Blood Culture - Final
Blood/Venous No Growth - Final Report
08/11/23 06:27 MRSA Screen - Final
Nose No Methicillin Resistant Staphylococcus aureus isolated.
Imaging:
08/14/2023 CT abdomen/pelvis: Postoperative changes consistent with partial small bowel obstruction and small bowel anastomosis in the left hemipelvis. There is mild linear inflammatory stranding and small volume ascites. No evidence of perforation
or abscess, and no bowel dilatation to suggest ongoing obstruction. Biliary sludge noted in the gallbladder. Small bilateral renal cysts noted. Diverticuli are present in the colon, with no CT evidence of diverticulitis. Please see full
dictation for additional detail. Film personally viewed.
--- NOTE | 2023-08-17 15:03 | CM ---
patient on regular diet,cont iv ancef,checking lytes,call from son krystal that dr is planning discharge tomorrow.I called snf referrals and asked for adms to call me back to find out if they have available beds.krystal wanted referrals also sent to doc
cynthia.i also sent a referral to [facility] and [facility].patient has been accepted. at [facility].mica rice will be okay with [facility] if other facilities cannot accept patient.
Phone number for report at [facility] 4th floor is [phone] and fax number is [phone].
[2023-08-17 16:00] VITALS: BP 152/69
[2023-08-17] MEDS: FLUSH (NSS) 2 FLUSH IV (17:21)
[2023-08-17] MEDS: LOVENOX 40 MG SC (17:22)
[2023-08-17 19:21] VITALS: BP 123/53
[2023-08-17] MEDS: LUMIGAN 0.01% 1 DROP BOTH EYES (22:44)
[2023-08-17 22:45] VITALS: BP 134/64
[2023-08-18] MEDS: ANCEF 10 IV ×2 (02:20→10:12)
[2023-08-18 02:26] VITALS: BP 142/68
[2023-08-18 05:26] VITALS: BMI 23.6
[2023-08-18] MEDS: SYNTHROID 25 MCG PO (06:17)
[2023-08-18 06:23] LABS: Hematocrit 33.2 % (37.0-47.0); Mean Corp Hgb Conc. 33.1 g/dL (33.0-37.0); Mean Corpuscular Hgb 28.5 pg (27.0-31.0); Mean Platelet Volume 9.5 fL (7.4-10.4); Platelet Count 409 10^3/uL (130-400); Red Blood Cell Count 3.86 10^6/uL (4.20-5.40); Red Cell Dist. Width 13.6 % (11.5-14.5); White Blood Cell Count 10.7 10^3/uL (4.8-10.8)
[2023-08-18 06:50] LABS: Blood Urea Nitrogen 10 mg/dl (7-17); Calcium 9.1 mg/dl (8.4-10.2); Carbon Dioxide 28 mmol/L (22-30); Chloride 104 mmol/L (98-107); Estimated Creatinine Clearance 58 ml/min; Glucose 116 mg/dl (70-99); Potassium 3.5 mmol/L (3.5-5.1); Sodium 137 mmol/L (135-145); eGFR > 60.00
[2023-08-18 07:33] VITALS: BP 146/79
[2023-08-18] MEDS: TOPROL XL 25 MG PO (08:35)
[2023-08-18] MEDS: PROTONIX IV 40 MG IV (08:35)
[2023-08-18] MEDS: ASPIR LOW (ENTERIC COATED) 81 MG PO (08:35)
[2023-08-18] MEDS: NSS (PRESERVATIVE FREE) 10 ML IV (08:35)
[2023-08-18] MEDS: SIMBRINZA 1%-0.2% OPHTH SUSP 1 DROP RIGHT EYE (10:13)
--- NOTE | 2023-08-18 10:58 | CM ---
Addendum entered by Nicole Villalobos 08/18/23 11:27:
CLAUDE met with patient and daughter, Katherine, bedside. Discussed 2:30 p.m. transport, phone number provided to pay for [employer], $95 ([phone]). IMM reviewed and signed, placed in patients chart. Patient reports she feels she has thrush in her
mouth, updated nurse. CM updated [facility] on time of transport. Correction: DON at [facility] is Gillain, not Elizabeth.
Plan; [facility] SNF, 2:30 p.m. [facility] transport time.
[facility]
Report: [phone]

Original Note:
CLAUDE spoke with Elizabeth from [facility], confirmed able to accept patient for SNF today, asking for a 2:30/3:00 p.m. transport. Patient will be going to room 414 at [facility]. CLAUDE spoke with Human Resources Coordinator, confirmed that [facility] is able to transport, scheduled
for 2:30 p.m. CM
[facility]
Report: [phone]
--- NOTE | 2023-08-18 11:05 | W.PN.HOSP.TC ---
Today's Communication/Plan
-
dc to SNF
Assessment / Plan
Assessment / Plan
08/10/23 22:52 Peritoneal Fluid Anaerobic Culture - Final
NO ANAEROBES ISOLATED
08/10/23 22:52 Abdomen Wound Culture - Final
Proteus mirabilis
Escherichia coli
08/10/23 22:52 Abdomen Gram Stain - Final
08/10/23 21:02 Blood/Venous Blood Culture - Final
No Growth - Final Report
08/10/23 20:59 Blood/Venous Blood Culture - Final
No Growth - Final Report
08/11/23 06:27 Nose MRSA Screen - Final
No Methicillin Resistant Staphylococcus aureus isolated.
CT A/P 08/14/23: Postoperative changes consistent with partial small bowel obstruction with small bowel anastomosis in the left hemipelvis associated with mild linear inflammatory stranding and small volume ascites. No evidence of perforation or
abscess and there is no bowel dilatation to suggest obstruction. Small bilateral pleural effusions with associated compressive atelectasis at the posterior lung bases. Diverticuli are present in the colon with no CT evidence of diverticulitis.
Echo: EF 57%. No RWMA, G1DD, nl RV sz/fxn, mild MR/TR, PASP 45-50mmHg.
Severe Sepsis secondary secondary to ileal perforation with surrounding enteritis:
-s/p�exploratory laparotomy with partial small bowel resection and excision small bowel mass on 08/11/23
-Patient accidentally took NG tube out 08/14/23, was not replaced as per CRS. CT scan noted with possible partial SBO. On clears as per CRS.
-Pain control
-was on Zosyn, now on Ancef as per ID. On discharge abx can be narrowed to Keflex through 08/24/23.
-BCxs NGTD, WCx with E coli/Proteus
- leukocytosis better 15.0-->10.7
-Lactic acidosis, resolved
SOB on 08/15/23 due to acute HFpEF:
-s/p doses of IV lasix on 08/15/23 and 08/16/23
-echo above
-cardiology following
-start BB (also for ectopy)
Other problems:
Coronary Artery Disease s/p Multiple stents (most recent 2019): cont ASA
Essential Hypertension: stop amlodipine, start BB with ectopy, IV Hydralazine PRN
Hyperlipidemia
Hypothyroidism: cont Levoxyl
Hyponatremia, resolved
Hypokalemia: follow K and Mg today
k 3.2-->3.4-->3.5
Mag 1.7-->1.5
Anxiety: Ativan PRN
FULL/Lovenox
discussed with CLAUDE Guerrero, accepted to [facility] and she is good to go from their aspect
More than 30 minutes spent in discharge including
Final examination of the patient
Summarizing hospital stay
Instructions for continuing care to all relevant caregivers
Preparation of discharge records, prescriptions, and referral forms
Total time spent (in minutes): 45
Anticipated Discharge: Today
Subjective/Interval History
-
Date of Service: August 18, 2023
Feels well, anxiously awaiting dc to SNF
Objective Data
-
Labs:
Laboratory Results
08/18/23
05:28
WBC 10.7
Hgb 11.0 L
Hct 33.2 L
Plt Count 409 H
Sodium 137
Potassium 3.5
Chloride 104
Carbon Dioxide 28
BUN 10
Creatinine 0.5 L
Glucose 116 H
Calcium 9.1
Vital Signs:
Vital Signs
Temp Pulse Resp BP Pulse Ox
98.1 F 69 16 146/79 95
08/18/23 07:33 08/18/23 07:33 08/18/23 07:33 08/18/23 07:33 08/18/23 07:33
I&O
08/17/23 08/18/23 08/19/23
06:59 06:59 06:59
Intake Total 530 / 530 470 / 470
Balance 530 / 530 470 / 470
Review of Systems
-
History Source: Patient, Physician (discussed with Dr. Petreson, as per his sign out, pt okay for dc) and Coordinated Provider
Constitutional: Denies Fever
EENT: Reports No Symptoms Reported
Respiratory: Reports No Symptoms
Cardiac: Reports No Symptoms
Abdomen/GI: Reports Diarrhea (loose stools); Denies Nausea or Vomiting
Genitourinary: Reports No Symptoms
Physical Exam
-
General: Well Developed, Well Nourished and No Apparent Distress
HEENT: Normocephalic, Atraumatic and Moist Mucous Membranes
Respiratory: Clear to Auscultation; Negative Wheezes, Rales or Rhonchi
Cardiac: Regular Rhythm and S1/S2
GI: Soft and Nontender (to light pressure)
Musculoskeletal: No Clubbing, No Cyanosis and No Edema
[2023-08-18 12:09] VITALS: BP 157/81
--- NOTE | 2023-08-18 12:40 | W.DS.TRANS ---
DC Summary - [employer]
-
Discharge Instructions:
Discharge Diagnosis/Procedures Small Bowel Perforation with focal perforation
Diet Low Residue
Activity No strenuous activity
Additional Activity No lifting over 10lbs (gallon of milk)
Driving Restrictions Not until seen by your Dr
Bathing Restrictions OK to Shower
Blood Work CBC, CMP, Magnesium in 5 days
Wound Care Change midline dressing with 4x4 gauze and tape.
Okay to leave off to shower.
Instructions: Low Fiber Diet
Stand-Alone Forms:
Changes to Home Medications: Yes
Discharge Medications:
DC Medications w/original date entered in [facility]
ascorbic acid (vitamin C) 500 mg tablet (Vitamin C) 500 mg PO DAILY Supplement 01/23/10
cholecalciferol (vitamin D3) 25 mcg (1,000 unit) tablet (Vitamin D3) 25 mcg PO DAILY Supplement 01/23/10
docosahexaenoic acid (dha)-epa 120 mg-180 mg capsule 1 cap PO DAILY Supplement 01/23/10
folic acid 1 mg tablet 1 mg PO DAILY Supplement 01/23/10
levothyroxine 25 mcg tablet (Synthroid) 25 mcg PO DAILY AT 0700 Thyroid 01/23/10
multivitamin with folic acid 400 mcg tablet (Tab-A-Courtney) 1 tab PO DAILY Supplement 01/23/10
aspirin 81 mg tablet,delayed release 81 mg PO DAILY Blood Clot Prevention/Tx 02/28/13
amlodipine 2.5 mg tablet 2.5 mg PO DAILY Blood Pressure 08/10/23
bimatoprost 0.01 % eye drops (Lumigan) 1 drp BOTH EYES HS Eye Condition 08/10/23
brinzolamide 1 %-brimonidine 0.2 % eye drops,suspension (Simbrinza) 1 drp RIGHT EYE DAILY Eye Condition 08/10/23
coenzyme Q10 100 mg capsule (Co Q-10) 100 mg PO DAILY Supplement 08/10/23
diphenhydramine HCl 25 mg capsule (ZzzQuil) 25 mg PO HS Sleep 08/10/23
estradiol 2 mg (7.5 mcg/24 hour) vaginal ring (Estring) 1 vag ring vaginal [id number] Hormonal Agent 08/10/23
red yeast rice 600 mg tablet 600 mg PO DAILY herbal supplement 08/10/23
cephalexin 500 mg capsule 500 mg PO QID #30 caps 08/18/23
Home Medication Changes
Keflex added qid for 30 pills
Pending Results: No
== END 2023-08-18 14:30 | DRG 853 ==
LOC: 2 SOUTH 21:32
PROVIDERS: Internal Medicine; Physician Assistant; Registered Nurse; ADMITTING PHYSICIAN Internal Medicine; ATTENDING PHYSICIAN Internal Medicine; CONSULT PHYSICIAN Internal Medicine Cardiovascular Disease; CONSULT PHYSICIAN Internal Medicine Infectious Disease; CONSULT PHYSICIAN Surgery; EMERGENCY PHYSICIAN Emergency Medicine; FAMILY PHYSICIAN Internal Medicine Geriatric Medicine
PROC: 0DBB0ZZ Excision of Ileum, Open Approach (ICD-10-PCS; 2023-08-10)
PROC: 0DBA0ZX Excision of Jejunum, Open Approach, Diagnostic (ICD-10-PCS; 2023-08-10)
DX: A41.9 Sepsis, unspecified organism (principal); I50.31 Acute diastolic (congestive) heart failure; K65.9 Peritonitis, unspecified; E87.1 Hypo-osmolality and hyponatremia; K57.00 Diverticulitis of small intestine with perforation and abscess without bleeding; R65.20 Severe sepsis without septic shock; B96.4 Proteus (mirabilis) (morganii) as the cause of diseases classified elsewhere; B96.20 Unspecified Escherichia coli [E. coli] as the cause of diseases classified elsewhere; I25.10 Atherosclerotic heart disease of native coronary artery without angina pectoris; I11.0 Hypertensive heart disease with heart failure; E87.6 Hypokalemia; E03.9 Hypothyroidism, unspecified; E83.42 Hypomagnesemia; D21.4 Benign neoplasm of connective and other soft tissue of abdomen
CPT/HCPCS: 88307; 71046; 74018; 74177; 74230; 80048; 80053; 83605; 83735; 83880; 84100; 84443; 85025; 85027; 87040; 87070; 87075; 87077; 87186; 87205; 88341; 88342; 92526; 92610; 92611; 93306; 97110; 97116; 97163; 97167; 97530; 99285; J2185; Q9967

== ENCOUNTER → 2023-08-28 09:34 | Outpatient (REF) | payer MEDICARE, SELFPAY ==
[2023-08-28 11:16] LABS: % Eosinophils 2.2 % (0-6); % Immature Granulocytes 0.6 % (0-0.5); % Lymphocytes 12.3 % (20.5-51.1); % Monocytes 8.9 % (1.7-9.3); Absolute Basophils 0.1 10^3/uL (0-0.2); Absolute Eosinophils 0.2 10^3/uL (0-0.7); Absolute Immature Granulocytes 0.1 10^3/uL (0-0.05); Absolute Monocytes 0.7 10^3/uL (0.1-0.6); Absolute Neutrophils 5.8 10^3/uL (1.4-6.5); Hematocrit 32.1 % (37.0-47.0); Hemoglobin 10.5 g/dL (12.0-16.0); Mean Corp Hgb Conc. 32.7 g/dL (33.0-37.0); Mean Corpuscular Hgb 28.9 pg (27.0-31.0); Mean Corpuscular Volume 88.4 fL (81.0-99.0); Nucleated Red Blood Cells % 0 %; Platelet Count 500 10^3/uL (130-400); Red Blood Cell Count 3.63 10^6/uL (4.20-5.40); Red Cell Dist. Width 14.3 % (11.5-14.5); White Blood Cell Count 7.7 10^3/uL (4.8-10.8)
[2023-08-28 13:27] LABS: ALT (SGPT) 18 U/L (0-35); AST (SGOT) 20 U/L (14-36); Albumin 3.3 g/dl (3.5-5.0); Alkaline Phosphatase 92 U/L (38-126); Blood Urea Nitrogen 8 mg/dl (7-17); Calcium 10.1 mg/dl (8.4-10.2); Carbon Dioxide 26 mmol/L (22-30); Chloride 104 mmol/L (98-107); Glucose 96 mg/dl (70-99); Potassium 4.7 mmol/L (3.5-5.1); Sodium 138 mmol/L (135-145); Total Bilirubin 0.8 mg/dl (0.2-1.3); Total Protein 5.8 g/dl (6.3-8.2); eGFR > 60.00
== END ==
LOC: OLABP 09:34
PROVIDERS: ATTENDING PHYSICIAN Family Medicine
DX: I25.10 Atherosclerotic heart disease of native coronary artery without angina pectoris (principal)
CPT/HCPCS: 36415; 80053; 85025

== ENCOUNTER → 2023-09-06 08:05 | Outpatient (REF) | payer MEDICARE, SELFPAY | LOC: HWRAD 08:05 | PROVIDERS: ATTENDING PHYSICIAN Internal Medicine Hematology & Oncology; FAMILY PHYSICIAN Internal Medicine Geriatric Medicine | DX: R19.00 Intra-abdominal and pelvic swelling, mass and lump, unspecified site (principal) | CPT/HCPCS: 71250 ==